=== PATIENT | female | born 1950 | race Caucasian/White ===

== ENCOUNTER 2017-06-18 08:50 | Outpatient (RCR) | payer MEDICARE, OTHER ==
[2017-03-26 08:30] VITALS: BP 117/71
[2017-03-26 08:35] LABS: PLATELET COUNT, AUTOMATED 188 K/uL (150-450)
[2017-03-28 09:45] VITALS: BP 129/86
--- NOTE | 2017-03-28 18:27 | ONCOLOGY FOLLOW UP NOTE ---
EVENT DATE: March 28, 2017 DIAGNOSES 1. Multiple myeloma. 2. Hypercholesterolemia. 3. History of deep vein thrombosis of the lower extremity. 4. Esophagitis and ulcer disease. CHIEF COMPLAINT Patient is here today for followup of her multiple myeloma on maintenance Velcade therapy. ONCOLOGY HISTORY The patient is a 66-year-old female who was found during her evaluation in July 2011 by CBC and chem panel to have mild leukopenia of 2.4 with atypical lymphocytes in the peripheral blood. Her total protein at that time was high as well as liver enzymes. Total protein was 8.2 and albumin was 3.7. The patient had a serum protein electrophoresis which showed 0.31 gm/dL monoclonal protein. She had a bone marrow aspiration biopsy done on July 19, 2011 which showed kappa monoclonal plasma cell dyscrasia. Peripheral blood was circulating plasma cells representing 8% of the nucleated cells. Beta-2 macroglobulin was high at 4. IgG was low at 374, IgA low at 14 and IgM low at 19. A 24-hour urine showed 1399 mg/dL free monoclonal kappa light change (Bence -Martinez protein) for 24 hours. FISH for multiple myeloma from the bone marrow biopsy came back abnormal for +1, -13 and translocation 14 and 16. Scheduled bone survey came back negative for lytic bone lesions, but MRI of the cervical and thoracic spine did reveal abnormal signal throughout the lower cervical and thoracic spine suggestive of underlying myeloproliferative bone marrow disorder. The patient received chemotherapy with VRD regimen with Velcade, Revlimid and dexamethasone for four courses between August 09, 2011 through November 17, 2011. This was followed by autologous stem cell transplant after pre- palliative regimen with Melphalan 100 mg/m2 given on December 10, 2011 through December 11, 2011. She received stem cell infusion on December 13, 2011. The patient started maintenance Velcade therapy on August 08, 2014. HISTORY OF PRESENT ILLNESS Patient is here today for followup of her multiple myeloma on maintenance Velcade therapy. Patient is doing fine currently. Apart from having some tingling and numbness in the fingers for a few days after her Velcade injection , the patient does not have any other complaints. PAST MEDICAL HISTORY DVT of the left leg in 1999. Hypercholesterolemia. Esophagitis with peptic ulcer disease. PAST SURGICAL HISTORY Surgery for broken right ankle in 2002. Inferior vena cava filter placed in 1999. Tubal ligation. SOCIAL HISTORY The patient is . She has a son and daughter. 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 Denies any abuse of tobacco, alcohol or drugs. She has about one drink per year. FAMILY HISTORY Mother had breast cancer at the age of sixty-three. Father had liver cancer at the age of seventy-three. Aunt with breast cancer, does not know exactly the age. Grandmother had ovarian cancer at the age of sixty-three. CURRENT MEDICATIONS 1. Multivitamins once daily. 2. Calcium 200 mg once daily. 3. Aspirin 81 mg daily. 4. Pantoprazole 40 mg daily. 5. Acyclovir 800 mg daily. 6. Vitamin D 4000 international units once daily. 7. Zometa 4 mg intravenous monthly. 8. Allopurinol 100 mg daily. ALLERGIES STREPTOKINASE, which caused hypotension. CLINDAMYCIN, which caused hives. REVIEW OF SYSTEMS CONSTITUTIONAL: No appetite or weight change. No fever, chills or sweating. No recent infection. HEENT: Ears: No tinnitus or hearing problem. Nose: No nasal discharge or epistaxis. Throat: No sore throat or mouth ulcers. Eyes: No diplopia or visual changes. RESPIRATORY: She has a dry cough from blood pressure medication. CARDIOVASCULAR: No chest pain, orthopnea, or paroxysmal nocturnal dyspnea (PND) . No edema. No palpitations. GASTROINTESTINAL: No nausea or vomiting. No diarrhea or constipation. No change in bowel movements. No heartburn or swallowing difficulties. No abdominal pain. No jaundice. No hematemesis, melena or rectal bleeding. GENITOURINARY: No hematuria or dysuria. MUSCULOSKELETAL: She has neck pain. NEUROLOGICAL: Patient has some neuropathy in the fingers for a few days after each shot of Velcade. HEMATOLOGIC/LYMPHATIC: She bruises easily. No enlarged lymph nodes. SKIN: No skin rash or lump. PSYCHIATRIC: No anxiety or depression. PHYSICAL EXAMINATION GENERAL: Looks stable. Well-developed, well-nourished, and in no acute distress. VITAL SIGNS: Blood pressure 129/86, pulse 73 per minute, respirations 16 per minute, temperature 97.4, pulse ox 93% on room air. HEENT: Head: Atraumatic. No sinus tenderness to palpation. Eyes: No icterus or conjunctivitis. Mouth and throat: No oral thrush or mucositis. NECK: Supple. No cervical or supraclavicular lymphadenopathy. LUNGS: Clear to auscultation and percussion bilaterally. HEART: Regular rate and rhythm. No gallops, murmurs, clicks or rubs. ABDOMEN: Soft and lax. No tenderness. No hepatosplenomegaly. No masses. EXTREMITIES: No cyanosis, clubbing or edema. LYMPHATICS: No peripheral lymphadenopathy. NEUROLOGICAL: Conscious, alert and oriented times three. No focal motor or sensory deficits. PSYCHIATRIC: Mood and affect appear normal. SKIN: No skin rash, bruise or purpuric eruption. DIAGNOSTIC DATA CBC showed white count 4.5 hemoglobin 15.5, hematocrit 44.8, platelets 188,000. Chem panel was totally normal. Beta-2 microglobulin is normal at 1.8. [place] free light chain is high at 5.13, but lambda is normal at 1.22 and the kappa to lambda ratio is 4.20. IgG level is 692, IgA is 160 and IgM is 29. Serum protein immunoelectrophoresis shows a monoclonal band of IgG kappa at 0.22 g/dL , which is stable. ASSESSMENT 1. Multiple myeloma with plasma cell leukemia with 60% plasma cells in the bone marrow and 8% plasma cells in the peripheral blood. Skeletal bone survey was negative for lytic bone lesions. MRI of the cervical spine did reveal bone marrow signal throughout the lower cervical and thoracic spine suggestive of underlying bone disease. Patient received VRD chemotherapy with Velcade, Revlimid and dexamethasone between August 09, 2011 through November 04, 2011 followed by autologous stem cell transplant on March 16, 2012, after melphalan conditioning. Bone marrow aspiration biopsy revealed the presence of 4% to 5% kappa monoclonal cells and 0.9 g/dL IgG kappa monoclonal protein after bone marrow transplant. Her M-spike marcelo, so the patient started maintenance Velcade therapy on August 08, 2014, and she is maintained on Velcade every other week. Her current monoclonal protein is 0.22 g/dL which is stable. Patient is totally asymptomatic, except for mild neuropathy in the tips of the fingers for a few days after each Velcade shot. Patient denies any constitutional symptoms. I am planning to continue followup. I will continue Velcade every other week. I will see her again in a month from now with CBC, chem panel, LDH , uric acid and myeloma profile, and I will check CBC, chem panel and uric acid prior to each Velcade shot. 2. Velcade-induced neuropathy, very mild. Patient currently on vitamin B6 and B12. Will continue the same. 3. Esophagitis on pantoprazole. 4. History of deep venous thrombosis of the left lower extremity in 1999, status post IVC filter placement. 5. Hyperuricemia, under control with allopurinol. PLAN 1. Velcade every other week. 2. CBC, chem panel, uric acid prior to each Velcade therapy. 3. Patient is to return in one month with CBC chem panel, LDH, uric acid and myeloma profile. 4. Continue acyclovir 800 mg twice daily as a prophylaxis against shingles. 5. Patient is to contact us for any new concerns or complaints. [facility]
[2017-04-08 09:08] VITALS: BP 115/69
[2017-04-08 09:10] LABS: PLATELET COUNT, AUTOMATED 198 K/uL (150-450)
[2017-04-09 09:11] VITALS: BP 114/80
[2017-04-22 09:22] VITALS: BP 124/76
[2017-04-22 09:37] LABS: PLATELET COUNT, AUTOMATED 189 K/uL (150-450)
[2017-04-23 08:47] VITALS: BP 113/84
[2017-05-06 09:03] VITALS: BP 134/86
[2017-05-06 09:14] LABS: PLATELET COUNT, AUTOMATED 201 K/uL (150-450)
[2017-05-20 09:22] LABS: PLATELET COUNT, AUTOMATED 208 K/uL (150-450)
[2017-05-20 15:05] VITALS: BP 129/94
[2017-05-21 08:59] VITALS: BP 128/77
[2017-05-24 08:55] VITALS: BP 114/75
--- NOTE | 2017-05-24 16:42 | ONCOLOGY FOLLOW UP NOTE ---
EVENT DATE: May 24, 2017 DIAGNOSES 1. Multiple myeloma. 2. Hypercholesterolemia. 3. History of deep vein thrombosis of the lower extremity. 4. Esophagitis and ulcer disease. CHIEF COMPLAINT Patient is here today for followup of her multiple myeloma on maintenance Velcade therapy. ONCOLOGY HISTORY The patient is a 66-year-old female who was found during her evaluation in July 2011 by CBC and chem panel to have mild leukopenia of 2.4 with atypical lymphocytes in the peripheral blood. Her total protein at that time was high as well as liver enzymes. Total protein was 8.2 and albumin was 3.7. The patient had a serum protein electrophoresis which showed 0.31 gm/dL monoclonal protein. She had a bone marrow aspiration biopsy done on July 19, 2011 which showed kappa monoclonal plasma cell dyscrasia. Peripheral blood was circulating plasma cells representing 8% of the nucleated cells. Beta-2 macroglobulin was high at 4. IgG was low at 374, IgA low at 14 and IgM low at 19. A 24-hour urine showed 1399 mg/dL free monoclonal kappa light change (Bence -Martinez protein) for 24 hours. FISH for multiple myeloma from the bone marrow biopsy came back abnormal for +1, -13 and translocation 14 and 16. Scheduled bone survey came back negative for lytic bone lesions, but MRI of the cervical and thoracic spine did reveal abnormal signal throughout the lower cervical and thoracic spine suggestive of underlying myeloproliferative bone marrow disorder. The patient received chemotherapy with VRD regimen with Velcade, Revlimid and dexamethasone for four courses between August 09, 2011 through November 17, 2011. This was followed by autologous stem cell transplant after pre- palliative regimen with Melphalan 100 mg/m2 given on December 10, 2011 through December 11, 2011. She received stem cell infusion on December 13, 2011. The patient started maintenance Velcade therapy on August 08, 2014. HISTORY OF PRESENT ILLNESS Patient is here today for followup of her multiple myeloma on maintenance Velcade therapy with Velcade every other week. She is doing fine currently, except for some upper respiratory tract infection with cough and expectoration and runny nose. She has also occasional headache. Other than that she is doing fine. PAST MEDICAL HISTORY DVT of the left leg in 1999. Hypercholesterolemia. Esophagitis with peptic ulcer disease. PAST SURGICAL HISTORY Surgery for broken right ankle in 2002. Inferior vena cava filter placed in 1999. Tubal ligation. SOCIAL HISTORY The patient is . She has a son and daughter. 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 Denies any abuse of tobacco, alcohol or drugs. She has about one drink per year. FAMILY HISTORY Mother had breast cancer at the age of sixty-three. Father had liver cancer at the age of seventy-three. Aunt with breast cancer, does not know exactly the age. Grandmother had ovarian cancer at the age of sixty-three. CURRENT MEDICATIONS 1. Multivitamins once daily. 2. Calcium 200 mg once daily. 3. Aspirin 81 mg daily. 4. Pantoprazole 40 mg daily. 5. Acyclovir 800 mg daily. 6. Vitamin D 4000 international units once daily. 7. Zometa 4 mg intravenous monthly. 8. Allopurinol 100 mg daily. ALLERGIES STREPTOKINASE, which caused hypotension. CLINDAMYCIN, which caused hives. REVIEW OF SYSTEMS CONSTITUTIONAL: No appetite or weight change. No fever, chills or sweating. No recent infection. HEENT: Ears: No tinnitus or hearing problem. Nose: She has runny nose. Throat: No sore throat or mouth ulcers. Eyes: No diplopia or visual changes. RESPIRATORY: She has a cough with expectoration. CARDIOVASCULAR: No chest pain, orthopnea, or paroxysmal nocturnal dyspnea (PND) . No edema. No palpitations. GASTROINTESTINAL: No nausea or vomiting. No diarrhea or constipation. No change in bowel movements. No heartburn or swallowing difficulties. No abdominal pain. No jaundice. No hematemesis, melena or rectal bleeding. GENITOURINARY: No hematuria or dysuria. MUSCULOSKELETAL: She has neck pain. NEUROLOGICAL: She has occasional headache. HEMATOLOGIC/LYMPHATIC: She bruises easily. No enlarged lymph nodes. SKIN: No skin rash or lump. PSYCHIATRIC: No anxiety or depression. PHYSICAL EXAMINATION GENERAL: Looks stable. Well-developed, well-nourished, and in no acute distress. VITAL SIGNS: Blood pressure 114/75, pulse 86 per minute, respirations 16 per minute, temperature 97.5, pulse ox 90% on room air. HEENT: Head: Atraumatic. No sinus tenderness to palpation. Eyes: No icterus or conjunctivitis. Mouth and throat: No oral thrush or mucositis. NECK: Supple. No cervical or supraclavicular lymphadenopathy. LUNGS: Clear to auscultation and percussion bilaterally. HEART: Regular rate and rhythm. No gallops, murmurs, clicks or rubs. ABDOMEN: Soft and lax. No tenderness. No hepatosplenomegaly. No masses. EXTREMITIES: No cyanosis, clubbing or edema. LYMPHATICS: No peripheral lymphadenopathy. NEUROLOGICAL: Conscious, alert and oriented times three. No focal motor or sensory deficits. PSYCHIATRIC: Mood and affect appear normal. SKIN: No skin rash, bruise or purpuric eruption. DIAGNOSTIC DATA CBC showed white count 5.2, hemoglobin 16.5, hematocrit 46.8, platelets 208, 000. Chem panel was totally normal. Beta-2 microglobulin is normal at 2.1. Serum protein immunoelectrophoresis showed a monoclonal band of IgG kappa of 0.25 g/dL. ASSESSMENT 1. Multiple myeloma with plasma cell leukemia with 60% plasma cells in the bone marrow and 8% plasma cells in the peripheral blood. Skeletal bone survey was negative for lytic bone lesions. MRI of the cervical spine did reveal bone marrow signal throughout the lower cervical and thoracic spine suggestive of underlying bone disease. Patient received VRD chemotherapy with Velcade, Revlimid and dexamethasone between August 09, 2011 through November 04, 2011 followed by autologous stem cell transplant on March 16, 2012, after melphalan conditioning. Bone marrow aspiration biopsy revealed the presence of 4% to 5% kappa monoclonal cells and 0.9 g/dL IgG kappa monoclonal protein after her bone marrow transplant. Her M-spike marcelo, so the patient started maintenance Velcade therapy on August 08, 2014, and she was maintained on that since then. Her current monoclonal protein is 0.25 g of IgG [place], which is up from 0.22 g/ dL. Patient is asymptomatic from her disease. I am planning to continue the same treatment with Velcade every other week, and I will see her in a month. If her monoclonal protein continues to rise, I am planning to switch her maintenance therapy from Velcade to Revlimid orally. I explained that to the patient and she is agreeable with the plan of management. I will see her in a month with CBC, chem panel, LDH, uric acid and myeloma profile. 2. Velcade-induced neuropathy, very mild. Will continue vitamin supplement with B6 and B12. 3. Esophagitis on pantoprazole. 4. History of deep venous thrombosis of the left lower extremity in 1999, status post IVC filter placement. 5. Hyperuricemia, under control with allopurinol 100 mg daily. We will continue the same. PLAN 1. Velcade every other week. 2. CBC, chem panel to be checked prior to each Velcade therapy. 3. Patient is to return in one month with CBC chem panel, LDH, uric acid and myeloma profile. 4. Continue acyclovir 800 mg twice daily as a prophylaxis against shingles. 5. Allopurinol 100 mg daily. 5. Patient is to contact us for any new concern or complaints. [facility]
[2017-06-03 08:42] VITALS: BP 116/78
[2017-06-03 08:58] LABS: PLATELET COUNT, AUTOMATED 212 K/uL (150-450)
[2017-06-04 09:21] VITALS: BP 123/75
[2017-06-17 09:17] VITALS: BP 117/73
[2017-06-17 09:35] LABS: PLATELET COUNT, AUTOMATED 206 K/uL (150-450)
[~2017-06-18] VITALS: Ht 160 cm; Wt 81.5 kg
[~2017-06-18 08:50] MED LIST: ACYC800T99 PO; ALLO-119 PO; ALLO100T70 PO; AMOX-362 PO; ASPI-1471 PO; BORTEZOMIB 3.5 MG INJS SC ONE; CALC600T63 PO; CHOL200022 PO; HYDR-2966 PO; LUTE20CA11 PO; MULT-820 PO; ONDA8TAB94 PO; PANT40TA65 PO; POTA10CA40 PO; PYRI100T57 PO; SIMV5TAB60 PO; ZOLE4VIA IV
[2017-06-18] MEDS ORDERED: BORTEZOMIB 3.5 MG INJS SC ONE (09:00)
[2017-06-18 09:19] VITALS: BP 109/83
== END 2017-06-20 ==
LOC: SPU 08:50
PROVIDERS: ATTEND Internal Medicine Hematology
DX: Z51.11 Encounter for antineoplastic chemotherapy (principal); C90.01 Multiple myeloma in remission; Z85.6 Personal history of leukemia; G62.0 Drug-induced polyneuropathy; K20.9 Esophagitis, unspecified; Z86.718 Personal history of other venous thrombosis and embolism; E79.0 Hyperuricemia without signs of inflammatory arthritis and tophaceous disease; Z79.82 Long term (current) use of aspirin; Z79.899 Other long term (current) drug therapy; M54.2 Cervicalgia; R05 Cough
CPT/HCPCS: 36415; 82232; 83615; 83883; 84550; 85025; 86334; 96401; G0463; J9041; 82040; 82247; 82310; 82374; 82435; 82565; 82947; 84075; 84132; 84155; 84295; 84450; 84460; 84520; 99212

== ENCOUNTER → 2017-07-05 | Outpatient (CLI) | payer MEDICARE, OTHER ==
[~2017-07-05] MED LIST changes: -BORTEZOMIB 3.5 MG INJS SC ONE
[2017-07-05 11:33] LABS: PLATELET COUNT, AUTOMATED 123 K/uL (150-450)
--- NOTE | 2017-07-05 11:57 | RADIOLOGY IMAGING REPORT ---
FACILITY: [facility] PATIENT NAME: Rosa Quiroga : 1950 MR: [id number] V: [id number] EXAM DATE: ORDERING PHYSICIAN: JALYN STERLING TECHNOLOGIST: Location[place] [facility] [place] Patient: Rosa Quiroga : 1950 Visit/Account:[id number] Date of Sevice: 07/05/2017 Technique: CHEST PA AND LAT HISTORY: Bronchitis Comparison studies: Chest radiographs January 11, 2016 FINDINGS: Hazy left left lower and left midlung as well as right lower lung airspace opacities are no nathan. The lung apices are clear. No pleural effusion. The cardiac silhouette is unremarkable. IMPRESSION: 1. Findings concerning for multilobar pneumonia. Report Dictated By: Karan Bruno DO at 07/05/2017 11:51 AM Report E-Signed By: Karan Bruno DO at 07/05/2017 11:53 AM WSN:[email or web address]
== END ==
LOC: LAB 10:51
PROVIDERS: ATTEND Family Medicine
DX: R91.8 Other nonspecific abnormal finding of lung field (principal); J40 Bronchitis, not specified as acute or chronic; R00.0 Tachycardia, unspecified
CPT/HCPCS: 36415; 71046; 82040; 82247; 82310; 82374; 82435; 82565; 82947; 84075; 84132; 84155; 84295; 84450; 84460; 84520; 85025

== ENCOUNTER → 2017-08-06 | Outpatient (CLI) | payer MEDICARE, OTHER ==
[~2017-08-06] MED LIST changes: +POTA20TA94 PO
--- NOTE | 2017-08-07 08:28 | RADIOLOGY IMAGING REPORT ---
FACILITY: [facility] - [place] PATIENT NAME: ENMA BROWN : [id number] MR: [id number] V: [id number] EXAM DATE: ORDERING PHYSICIAN: JALYN STERLING TECHNOLOGIST: Azalea Dior PROCEDURE:BILATERAL DIGITAL SCREENING MAMMOGRAM WITH CAD ASSISTED INTERPRETATION & 3D TOMOSYNTHESIS COMPARISON:Prior mammograms 07/16/16, 07/14/15, 07/09/14, 06/17/13, 06/12/12, 06/11/11. INDICATIONS:SCREENING FINDINGS: Moderately heterogeneous fibroglandular tissue is seen throughout the breasts. The parenchymal pattern has remained stable allowing for difference in mammographic technique & patient positioning. There is no evidence of malignant appearing mass, malignant appearing calcifications or other secondary sign of malignancy in either breast. DIAGNOSTIC CATEGORY 1--NEGATIVE. RECOMMENDATIONS: ROUTINE MAMMOGRAM AND CLINICAL EVALUATION. IMPRESSION: BIRADS 1: Negative No significant abnormality is seen. Dictated by: Kimberley Sauceda M.D. on 08/06/2017 at 14:52 Transcribed by: RASTA on 08/06/2017 at 15:32 Approved by: Kimberley Sauceda M.D. on 08/07/2017 at 8:27 [facility]
== END ==
LOC: MAMO 01:53
PROVIDERS: ATTEND Family Medicine
DX: Z12.31 Encounter for screening mammogram for malignant neoplasm of breast (principal)
CPT/HCPCS: 77063; 77067

== ENCOUNTER 2017-09-10 09:30 | Outpatient (RCR) | payer MEDICARE, OTHER ==
[2017-06-21 09:18] VITALS: BP 120/67
--- NOTE | 2017-06-22 17:41 | ONCOLOGY FOLLOW UP NOTE ---
EVENT DATE: June 21, 2017 DIAGNOSES 1. Multiple myeloma. 2. Hypercholesterolemia. 3. History of deep vein thrombosis of the lower extremity. 4. Esophagitis and ulcer disease. CHIEF COMPLAINT Patient is here today for followup of her multiple myeloma on maintenance Velcade therapy. ONCOLOGY HISTORY The patient is a 66-year-old female who was found during her evaluation in July 2011 by CBC and chem panel to have mild leukopenia of 2.4 with atypical lymphocytes in the peripheral blood. Her total protein at that time was high as well as liver enzymes. Total protein was 8.2 and albumin was 3.7. The patient had a serum protein electrophoresis which showed 0.31 gm/dL monoclonal protein. She had a bone marrow aspiration biopsy done on July 19, 2011 which showed kappa monoclonal plasma cell dyscrasia. Peripheral blood was circulating plasma cells representing 8% of the nucleated cells. Beta-2 macroglobulin was high at 4. IgG was low at 374, IgA low at 14 and IgM low at 19. A 24-hour urine showed 1399 mg/dL free monoclonal kappa light change (Bence -Martinez protein) for 24 hours. FISH for multiple myeloma from the bone marrow biopsy came back abnormal for +1, -13 and translocation 14 and 16. Scheduled bone survey came back negative for lytic bone lesions, but MRI of the cervical and thoracic spine did reveal abnormal signal throughout the lower cervical and thoracic spine suggestive of underlying myeloproliferative bone marrow disorder. The patient received chemotherapy with VRD regimen with Velcade, Revlimid and dexamethasone for four courses between August 09, 2011 through November 17, 2011. This was followed by autologous stem cell transplant after pre- palliative regimen with Melphalan 100 mg/m2 given on December 10, 2011 through December 11, 2011. She received stem cell infusion on December 13, 2011. The patient started maintenance Velcade therapy on August 08, 2014. HISTORY OF PRESENT ILLNESS Patient is here today for followup of her multiple myeloma on maintenance Velcade therapy every other week. She is doing fine currently, except from having body aches for one to two days after the Velcade shot. She has occasional headache, but other than that she is doing really very well. PAST MEDICAL HISTORY DVT of the left leg in 1999. Hypercholesterolemia. Esophagitis with peptic ulcer disease. PAST SURGICAL HISTORY Surgery for broken right ankle in 2002. Inferior vena cava filter placed in 1999. Tubal ligation. SOCIAL HISTORY The patient is . She has a son and daughter. 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 Denies any abuse of tobacco, alcohol or drugs. She has about one drink per year. FAMILY HISTORY Mother had breast cancer at the age of sixty-three. Father had liver cancer at the age of seventy-three. Aunt with breast cancer, does not know exactly the age. Grandmother had ovarian cancer at the age of sixty-three. CURRENT MEDICATIONS 1. Multivitamins once daily. 2. Calcium 200 mg once daily. 3. Aspirin 81 mg daily. 4. Pantoprazole 40 mg daily. 5. Acyclovir 800 mg daily. 6. Vitamin D 4000 international units once daily. 7. Zometa 4 mg intravenous monthly. 8. Allopurinol 100 mg daily. ALLERGIES STREPTOKINASE, which caused hypotension. CLINDAMYCIN, which caused hives. REVIEW OF SYSTEMS CONSTITUTIONAL: No appetite or weight change. No fever, chills or sweating. No recent infection. HEENT: Ears: No tinnitus or hearing problem. Nose: She has runny nose. Throat: No sore throat or mouth ulcers. Eyes: No diplopia or visual changes. RESPIRATORY: She has a cough with expectoration. CARDIOVASCULAR: No chest pain, orthopnea, or paroxysmal nocturnal dyspnea (PND) . No edema. No palpitations. GASTROINTESTINAL: No nausea or vomiting. No diarrhea or constipation. No change in bowel movements. No heartburn or swallowing difficulties. No abdominal pain. No jaundice. No hematemesis, melena or rectal bleeding. GENITOURINARY: No hematuria or dysuria. MUSCULOSKELETAL: Patient has generalized body aches for about one to two days after the Velcade shot. NEUROLOGICAL: She has occasional headache. HEMATOLOGIC/LYMPHATIC: She bruises easily. No enlarged lymph nodes. SKIN: No skin rash or lump. PSYCHIATRIC: No anxiety or depression. PHYSICAL EXAMINATION GENERAL: Looks stable. Well-developed, well-nourished, and in no acute distress. VITAL SIGNS: Blood pressure 120/67, pulse 84 per minute, respirations 16 per minute, temperature 97.4, pulse ox 92% on room air. HEENT: Head: Atraumatic. No sinus tenderness to palpation. Eyes: No icterus or conjunctivitis. Mouth and throat: No oral thrush or mucositis. NECK: Supple. No cervical or supraclavicular lymphadenopathy. LUNGS: Clear to auscultation and percussion bilaterally. HEART: Regular rate and rhythm. No gallops, murmurs, clicks or rubs. ABDOMEN: Soft and lax. No tenderness. No hepatosplenomegaly. No masses. EXTREMITIES: No cyanosis, clubbing or edema. LYMPHATICS: No peripheral lymphadenopathy. NEUROLOGICAL: Conscious, alert and oriented times three. No focal motor or sensory deficits. PSYCHIATRIC: Mood and affect appear normal. SKIN: No skin rash, bruise or purpuric eruption. DIAGNOSTIC DATA CBC showed white count 4.9, hemoglobin 16.3, hematocrit 46.2, platelets 206, 000. Chem panel was totally normal except for AST 36. Other parameters are normal. Beta-2 microglobulin is normal at 1.9. [place] free light chain is high at 6.58, while lambda free light chain is normal at 0.92, with kappa to lambda free light chain ratio high at 7.15. IgG level is low at 671. Serum protein immunoelectrophoresis showed a monoclonal band of 0.22 g of IgG kappa, which is stable. ASSESSMENT 1. Multiple myeloma with plasma cell leukemia with 60% plasma cells in the bone marrow and 8% plasma cells in the peripheral blood. Skeletal bone survey was negative for lytic bone lesions. MRI of the cervical spine did reveal bone marrow signal throughout the lower cervical and thoracic spine suggestive of underlying bone disease. Patient received VRD chemotherapy with Velcade, Revlimid and dexamethasone between August 09, 2011 through November 04, 2011 followed by autologous stem cell transplant on March 16, 2012, after melphalan conditioning. Bone marrow aspiration biopsy revealed the presence of 4% to 5% kappa monoclonal cells and 0.9 g/dL IgG kappa monoclonal protein after her bone marrow transplant. Her M-spike marcelo, so the patient started maintenance Velcade therapy on August 08, 2014, and she is maintained on Velcade that since then. Her current monoclonal protein is 0.22, which is down from 0.25 of IgG [place]. Patient is asymptomatic from her disease, except for generalized body aches after Velcade for one to two days. I am planning to continue Velcade every other week, and I will check CBC, chem panel prior to each dose of Velcade , and I will see her again in a month with CBC, chem panel, LDH, uric acid and myeloma profile. 2. Velcade-induced neuropathy, which is really very good currently. Patient will continue vitamin B6 and B12 supplement. 3. Esophagitis on pantoprazole. 4. History of deep venous thrombosis of the left lower extremity in 1999, status post IVC filter placement. 5. Hyperuricemia, under control with allopurinol 100 mg daily. We will continue the same. PLAN 1. Velcade every other week. 2. CBC, chem panel to be checked prior to each Velcade therapy. 3. Patient is to return in one month with CBC chem panel, LDH, uric acid and myeloma profile. 4. Continue acyclovir 800 mg twice daily as a prophylaxis against shingles. 5. Allopurinol 100 mg daily. 5. Patient is to contact us for any new concern or complaints. [facility]
[2017-07-01 09:04] LABS: PLATELET COUNT, AUTOMATED 182 K/uL (150-450)
[2017-07-01 16:07] VITALS: BP 131/78
[2017-07-02 08:49] VITALS: BP 133/84
[2017-07-15 09:30] VITALS: BP 114/76
[2017-07-15 09:36] LABS: PLATELET COUNT, AUTOMATED 241 K/uL (150-450)
[2017-07-16 08:51] VITALS: BP 115/53
[2017-07-16 11:10] VITALS: BP 101/66
[2017-07-23 08:44] VITALS: BP 116/77
[2017-07-25 08:56] VITALS: BP 123/77
--- NOTE | 2017-07-25 18:49 | ONCOLOGY FOLLOW UP NOTE ---
EVENT DATE: July 25, 2017 DIAGNOSES 1. Multiple myeloma. 2. Hypercholesterolemia. 3. History of deep vein thrombosis of the lower extremity. 4. Esophagitis and ulcer disease. CHIEF COMPLAINT Patient is here today for followup of her multiple myeloma on maintenance Velcade therapy. ONCOLOGY HISTORY The patient is a 66-year-old female who was found during her evaluation in July 2011 by CBC and chem panel to have mild leukopenia of 2.4 with atypical lymphocytes in the peripheral blood. Her total protein at that time was high as well as liver enzymes. Total protein was 8.2 and albumin was 3.7. The patient had a serum protein electrophoresis which showed 0.31 gm/dL monoclonal protein. She had a bone marrow aspiration biopsy done on July 19, 2011 which showed kappa monoclonal plasma cell dyscrasia. Peripheral blood was circulating plasma cells representing 8% of the nucleated cells. Beta-2 macroglobulin was high at 4. IgG was low at 374, IgA low at 14 and IgM low at 19. A 24-hour urine showed 1399 mg/dL free monoclonal kappa light change (Bence -Martinez protein) for 24 hours. FISH for multiple myeloma from the bone marrow biopsy came back abnormal for +1, -13 and translocation 14 and 16. Scheduled bone survey came back negative for lytic bone lesions, but MRI of the cervical and thoracic spine did reveal abnormal signal throughout the lower cervical and thoracic spine suggestive of underlying myeloproliferative bone marrow disorder. The patient received chemotherapy with VRD regimen with Velcade, Revlimid and dexamethasone for four courses between August 09, 2011 through November 17, 2011. This was followed by autologous stem cell transplant after pre- palliative regimen with Melphalan 100 mg/m2 given on December 10, 2011 through December 11, 2011. She received stem cell infusion on December 13, 2011. The patient started maintenance Velcade therapy on August 08, 2014. HISTORY OF PRESENT ILLNESS Patient is here today for followup of her multiple myeloma on maintenance Velcade therapy given every other week. She is doing fine currently, except she had pneumonia two weeks ago, and she continues to have a residual cough with expectoration, but she is recovering from her infection. She is complaining also of headache and being tired and fatigued from her pneumonia. PAST MEDICAL HISTORY DVT of the left leg in 1999. Hypercholesterolemia. Esophagitis with peptic ulcer disease. PAST SURGICAL HISTORY Surgery for broken right ankle in 2002. Inferior vena cava filter placed in 1999. Tubal ligation. SOCIAL HISTORY The patient is . She has a son and daughter. 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 Denies any abuse of tobacco, alcohol or drugs. She has about one drink per year. FAMILY HISTORY Mother had breast cancer at the age of sixty-three. Father had liver cancer at the age of seventy-three. Aunt with breast cancer, does not know exactly the age. Grandmother had ovarian cancer at the age of sixty-three. CURRENT MEDICATIONS 1. Multivitamins once daily. 2. Calcium 200 mg once daily. 3. Aspirin 81 mg daily. 4. Pantoprazole 40 mg daily. 5. Acyclovir 800 mg daily. 6. Vitamin D 4000 international units once daily. 7. Zometa 4 mg intravenous monthly. 8. Allopurinol 100 mg daily. ALLERGIES 1. STREPTOKINASE, which caused hypotension. 2. CLINDAMYCIN, which caused hives. REVIEW OF SYSTEMS CONSTITUTIONAL: No appetite or weight change. No fever, chills or sweating. No recent infection. HEENT: Ears: No tinnitus or hearing problem. Nose: She has runny nose. Throat: No sore throat or mouth ulcers. Eyes: No diplopia or visual changes. RESPIRATORY: She has cough with expectoration. CARDIOVASCULAR: No chest pain, orthopnea, or paroxysmal nocturnal dyspnea (PND) . No edema. No palpitations. GASTROINTESTINAL: No nausea or vomiting. No diarrhea or constipation. No change in bowel movements. No heartburn or swallowing difficulties. No abdominal pain. No jaundice. No hematemesis, melena or rectal bleeding. GENITOURINARY: No hematuria or dysuria. MUSCULOSKELETAL: Patient has generalized body aches for about one to two days after the Velcade shot. NEUROLOGICAL: She has headache. HEMATOLOGIC/LYMPHATIC: No enlarged lymph nodes. She is weak, tired and fatigued. SKIN: No skin rash or lump. PSYCHIATRIC: No anxiety or depression. PHYSICAL EXAMINATION GENERAL: Looks stable. Well-developed, well-nourished, and in no acute distress. VITAL SIGNS: Blood pressure 123/77, pulse 72 per minute, respirations 16 per minute, temperature 97.1, pulse ox 92% on room air. HEENT: Head: Atraumatic. No sinus tenderness to palpation. Eyes: No icterus or conjunctivitis. Mouth and throat: No oral thrush or mucositis. NECK: Supple. No cervical or supraclavicular lymphadenopathy. LUNGS: Clear to auscultation and percussion bilaterally. HEART: Regular rate and rhythm. No gallops, murmurs, clicks or rubs. ABDOMEN: Soft and lax. No tenderness. No hepatosplenomegaly. No masses. EXTREMITIES: No cyanosis, clubbing or edema. LYMPHATICS: No peripheral lymphadenopathy. NEUROLOGICAL: Conscious, alert and oriented times three. No focal motor or sensory deficits. PSYCHIATRIC: Mood and affect appear normal. SKIN: No skin rash, bruise or purpuric eruption. DIAGNOSTIC DATA CBC showed white count 4.8, hemoglobin 15.8, hematocrit 43.7, platelets 241, 000. Chem panel totally normal. Beta-2 microglobulin is normal at 2.1. Serum protein immunoelectrophoresis showed 0.21 g/dL monoclonal protein of IgG kappa which is stable. ASSESSMENT 1. Multiple myeloma with plasma cell leukemia with 60% plasma cells in the bone marrow and 8% plasma cells in the peripheral blood. Skeletal bone survey was negative for lytic bone lesions. MRI of the cervical spine did reveal bone marrow signal throughout the lower cervical and thoracic spine suggestive of underlying bone disease. Patient received VRD chemotherapy with Velcade, Revlimid and dexamethasone between August 09, 2011 through November 04, 2011 followed by autologous stem cell transplant on March 16, 2012. She received melphalan conditioning at that time. Bone marrow aspiration biopsy revealed the presence of 4% to 5% kappa monoclonal cells and 0.9 g/dL IgG kappa monoclonal protein after her bone marrow transplant. Her M-spike marcelo, so the patient started maintenance Velcade therapy August 08, 2014, and she is on maintenance Velcade since then with stabilization of her monoclonal protein. Her current monoclonal protein is 0.21 g/dL of IgG kappa, which is stable. Patient is asymptomatic of her disease. She caught pneumonia two weeks ago, recovered from that, and patient is going to contact her primary care for pneumovax because she is due for repeat injection now. I am planning to continue Velcade every other week with CBC, chem panel to be checked before that. I will see her in a month with CBC, chem panel, LDH, uric acid and myeloma profile. 2. Velcade-induced neuropathy. Very good currently with B12 and B6 supplements. 3. Esophagitis on pantoprazole. 4. History of deep venous thrombosis, left lower extremity in 1999, status post IVC filter placement. 5. Hyperuricemia, under control with allopurinol 100 mg daily. We will continue the same. PLAN 1. Velcade every other week. 2. CBC, chem panel prior to each Velcade therapy. 3. Patient to return in one month with CBC chem panel, LDH, uric acid and myeloma profile. 4. Acyclovir 800 mg twice daily as a prophylaxis against shingles. 5. Allopurinol 100 mg daily. 6. Patient is to contact us for any new concern or complaints. MTDD
[2017-07-29 09:19] LABS: PLATELET COUNT, AUTOMATED 193 K/uL (150-450)
[2017-07-29 12:12] VITALS: BP 117/73
[2017-07-30 08:47] VITALS: BP 112/76
[2017-08-12 09:57] LABS: PLATELET COUNT, AUTOMATED 193 K/uL (150-450)
[2017-08-13 09:13] VITALS: BP 120/82
[2017-08-27 08:40] VITALS: BP 122/77
[2017-08-29 08:52] VITALS: BP 123/80
--- NOTE | 2017-08-29 18:32 | ONCOLOGY FOLLOW UP NOTE ---
EVENT DATE: August 29, 2017 DIAGNOSES 1. Multiple myeloma. 2. Hypercholesterolemia. 3. History of deep vein thrombosis of the lower extremity. 4. Esophagitis and ulcer disease. CHIEF COMPLAINT Patient is here today for followup of her multiple myeloma on maintenance Velcade therapy. ONCOLOGY HISTORY The patient is a 66-year-old female who was found during her evaluation in July 2011 by CBC and chem panel to have mild leukopenia of 2.4 with atypical lymphocytes in the peripheral blood. Her total protein at that time was high as well as liver enzymes. Total protein was 8.2 and albumin was 3.7. The patient had a serum protein electrophoresis which showed 0.31 gm/dL monoclonal protein. She had a bone marrow aspiration biopsy done on July 19, 2011 which showed kappa monoclonal plasma cell dyscrasia. Peripheral blood was circulating plasma cells representing 8% of the nucleated cells. Beta-2 macroglobulin was high at 4. IgG was low at 374, IgA low at 14 and IgM low at 19. A 24-hour urine showed 1399 mg/dL free monoclonal kappa light change (Bence -Martinez protein) for 24 hours. FISH for multiple myeloma from the bone marrow biopsy came back abnormal for +1, -13 and translocation 14 and 16. Scheduled bone survey came back negative for lytic bone lesions, but MRI of the cervical and thoracic spine did reveal abnormal signal throughout the lower cervical and thoracic spine suggestive of underlying myeloproliferative bone marrow disorder. The patient received chemotherapy with VRD regimen with Velcade, Revlimid and dexamethasone for four courses between August 09, 2011 through November 17, 2011. This was followed by autologous stem cell transplant after pre- palliative regimen with Melphalan 100 mg/m2 given on December 10, 2011 through December 11, 2011. She received stem cell infusion on December 13, 2011. The patient started maintenance Velcade therapy on August 08, 2014. HISTORY OF PRESENT ILLNESS Patient is here today for followup of her multiple myeloma on maintenance Velcade therapy. She is doing fine currently. She is totally asymptomatic, except for occasional headaches. PAST MEDICAL HISTORY DVT of the left leg in 1999. Hypercholesterolemia. Esophagitis with peptic ulcer disease. PAST SURGICAL HISTORY Surgery for broken right ankle in 2002. Inferior vena cava filter placed in 1999. Tubal ligation. SOCIAL HISTORY The patient is . She has a son and daughter. 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 Denies any abuse of tobacco, alcohol or drugs. She has about one drink per year. FAMILY HISTORY Mother had breast cancer at the age of sixty-three. Father had liver cancer at the age of seventy-three. Aunt with breast cancer, does not know exactly the age. Grandmother had ovarian cancer at the age of sixty-three. CURRENT MEDICATIONS 1. Multivitamins once daily. 2. Calcium 200 mg once daily. 3. Aspirin 81 mg daily. 4. Pantoprazole 40 mg daily. 5. Acyclovir 800 mg daily. 6. Vitamin D 4000 international units once daily. 7. Zometa 4 mg intravenous monthly. 8. Allopurinol 100 mg daily. ALLERGIES 1. STREPTOKINASE, which caused hypotension. 2. CLINDAMYCIN, which caused hives. REVIEW OF SYSTEMS CONSTITUTIONAL: No appetite or weight change. No fever, chills or sweating. No recent infection. HEENT: Ears: No tinnitus or hearing problem. Nose: She has runny nose. Throat: No sore throat or mouth ulcers. Eyes: No diplopia or visual changes. RESPIRATORY: She has cough with expectoration. CARDIOVASCULAR: No chest pain, orthopnea, or paroxysmal nocturnal dyspnea (PND) . No edema. No palpitations. GASTROINTESTINAL: No nausea or vomiting. No diarrhea or constipation. No change in bowel movements. No heartburn or swallowing difficulties. No abdominal pain. No jaundice. No hematemesis, melena or rectal bleeding. GENITOURINARY: No hematuria or dysuria. MUSCULOSKELETAL: Patient has generalized body aches for about one to two days after the Velcade shot. NEUROLOGICAL: She has occasional headaches. HEMATOLOGIC/LYMPHATIC: No enlarged lymph nodes. She is weak, tired and fatigued. SKIN: No skin rash or lump. PSYCHIATRIC: No anxiety or depression. PHYSICAL EXAMINATION GENERAL: Looks stable. Well-developed, well-nourished, and in no acute distress. VITAL SIGNS: Blood pressure 123/80, pulse 91 per minute, respirations 16 per minute, temperature 97.9, pulse ox 90% on room air. HEENT: Head: Atraumatic. No sinus tenderness to palpation. Eyes: No icterus or conjunctivitis. Mouth and throat: No oral thrush or mucositis. NECK: Supple. No cervical or supraclavicular lymphadenopathy. LUNGS: Clear to auscultation and percussion bilaterally. HEART: Regular rate and rhythm. No gallops, murmurs, clicks or rubs. ABDOMEN: Soft and lax. No tenderness. No hepatosplenomegaly. No masses. EXTREMITIES: No cyanosis, clubbing or edema. LYMPHATICS: No peripheral lymphadenopathy. NEUROLOGICAL: Conscious, alert and oriented times three. No focal motor or sensory deficits. PSYCHIATRIC: Mood and affect appear normal. SKIN: No skin rash, bruise or purpuric eruption. DIAGNOSTIC DATA CBC showed white count 4.8, hemoglobin 16.3, hematocrit 46.3, platelets 218, 000. Chem panel totally normal, except potassium 3.2, AST 41. Other parameters are normal. Myeloma profile showed kappa free light chain 5.13, which is down from 5.25. Her monoclonal protein of IgG kappa is 0.24 g/dL which is up from 0.21 g/dL last visit. ASSESSMENT 1. Multiple myeloma with plasma cell leukemia with 60% plasma cells in the bone marrow and 8% plasma cells in the peripheral blood. Skeletal bone survey was negative for lytic bone lesions. MRI of the cervical spine did reveal bone marrow signal throughout the lower cervical and thoracic spine suggestive of underlying bone disease. Patient received VRD chemotherapy with Velcade, Revlimid and dexamethasone between August 09, 2011 through November 04, 2011 followed by autologous stem cell transplant March 16, 2012. She received melphalan conditioning at that time. Bone marrow aspiration biopsy revealed the presence of 4% to 5% kappa monoclonal cells and 0.9 g/dL IgG kappa monoclonal protein after her bone marrow transplant. Her M-spike marcelo, so the patient started maintenance Velcade therapy August 08, 2014, and she is maintained on Velcade since then with stabilization of her monoclonal protein. Her current level of IgG kappa is 0.24 g/dL which is up from 0.21 g/dL. Patient is totally asymptomatic except for occasional headaches. I am planning to continue followup. I am planning to continue Velcade every other week. I will check her CBC, chem panel prior to each Velcade therapy, and I will see her in a month with CBC, chem panel, LDL, uric acid and myeloma profile. 2. Velcade-induced neuropathy, very mild. Patient currently on vitamin supplements with B12 and B6 with improvement. 3. Esophagitis on pantoprazole. 4. History of deep venous thrombosis, left lower extremity in 1999, status post IVC filter placement. 5. Hyperuricemia, under control with allopurinol 100 mg daily. I will continue same dose. PLAN 1. Velcade every other week. 2. CBC, chem panel to be checked prior to each Velcade therapy. 3. Patient to return in one month with CBC chem panel, LDH, uric acid and myeloma profile. 4. Acyclovir 800 mg twice daily as a prophylaxis against shingles. 5. Allopurinol 100 mg daily. 6. Patient is to contact us for any new concern or complaints. MTDD
[2017-09-09 09:06] VITALS: BP 115/76
[2017-09-09 09:18] LABS: PLATELET COUNT, AUTOMATED 203 K/uL (150-450)
[~2017-09-10] VITALS: Ht 160 cm; Wt 79.5 kg
[~2017-09-10 09:30] MED LIST changes: +BORTEZOMIB 3.5 MG INJS SC ONE; +DEXTROSE 5%(*) 100 ML BAG 100 ML IVPB PRN; +KCL/NS* 20 MEQ/1000 ML PREMIX 1,000 ML IV ONE; +LIDOCAINE/SOD BICARB 8.4% SYR ID PRN; +NS(*) 0.9% 100 ML BAG 100 ML IVPB PRN
[2017-09-10] MEDS ORDERED: BORTEZOMIB 3.5 MG INJS SC ONE (10:30)
[2017-09-10 12:45] VITALS: BP 115/76
== END 2017-09-19 ==
LOC: SPU 09:30
PROVIDERS: ATTEND Internal Medicine Hematology
DX: C90.00 Multiple myeloma not having achieved remission (principal); G62.0 Drug-induced polyneuropathy; T45.1X5A Adverse effect of antineoplastic and immunosuppressive drugs, initial encounter; K20.9 Esophagitis, unspecified; Z86.718 Personal history of other venous thrombosis and embolism; E79.0 Hyperuricemia without signs of inflammatory arthritis and tophaceous disease; E78.00 Pure hypercholesterolemia, unspecified; R05 Cough; Z79.82 Long term (current) use of aspirin; Z79.899 Other long term (current) drug therapy; R53.1 Weakness; R53.83 Other fatigue
CPT/HCPCS: 36415; 82232; 83615; 83883; 84550; 85025; 85027; 86334; 96365; 96366; 96401; G0463; J3480; J7050; J9041; 82040; 82247; 82310; 82374; 82435; 82565; 82947; 84075; 84132; 84155; 84295; 84450; 84460; 84520; 99212

== ENCOUNTER 2017-12-17 08:39 | Outpatient (RCR) | payer MEDICARE, OTHER ==
[2017-09-23 09:18] VITALS: BP 128/79
[2017-09-23 09:25] LABS: PLATELET COUNT, AUTOMATED 199 K/uL (150-450)
[2017-09-24 08:14] VITALS: BP 105/76
[2017-10-07 08:27] LABS: PLATELET COUNT, AUTOMATED 197 K/uL (150-450)
[2017-10-07 15:05] VITALS: BP 124/79
[2017-10-21 09:31] LABS: PLATELET COUNT, AUTOMATED 211 K/uL (150-450)
[2017-10-22 14:35] VITALS: BP 104/79
[2017-10-25 08:03] VITALS: BP 110/73
--- NOTE | 2017-10-25 16:12 | [facility] ONCOLOGY NOTE ---
EVENT DATE: October 25, 2017 DIAGNOSES 1. Multiple myeloma. 2. Hypercholesterolemia. 3. History of deep vein thrombosis of the lower extremity. 4. Esophagitis and ulcer disease. CHIEF COMPLAINT Patient is here today for followup of her multiple myeloma on maintenance Velcade therapy. ONCOLOGY HISTORY The patient is a 67-year-old female who was found during her evaluation in July 2011 by CBC and chem panel to have mild leukopenia of 2.4 with atypical lymphocytes in the peripheral blood. Her total protein at that time was high as well as liver enzymes. Total protein was 8.2, and albumin was 3.7. The patient had a serum protein electrophoresis which showed 0.31 g/dL monoclonal protein. She had a bone marrow aspiration biopsy done on July 19, 2011, which showed kappa monoclonal plasma cell dyscrasia. Peripheral blood was circulating plasma cells representing 8% of the nucleated cells. Beta-2 macroglobulin was high at 4. IgG was low at 374, IgA low at 14, and IgM low at 19. A 24-hour urine showed 1399 mg/dL free monoclonal kappa light change (Bence -Martinez protein) for 24 hours. FISH for multiple myeloma from the bone marrow biopsy came back abnormal for +1, -13, and translocation 14 and 16. Scheduled bone survey came back negative for lytic bone lesions, but MRI of the cervical and thoracic spine did reveal abnormal signal throughout the lower cervical and thoracic spine suggestive of underlying myeloproliferative bone marrow disorder. The patient received chemotherapy with VRd regimen with Velcade, Revlimid, and dexamethasone for four courses between August 09, 2011, through November 17, 2011. This was followed by autologous stem cell transplant after pre -palliative regimen with Melphalan 100 mg/m2 given on December 10, 2011, through December 11, 2011. She received stem cell infusion on December 13, 2011. The patient started maintenance Velcade therapy on August 08, 2014. HISTORY OF PRESENT ILLNESS Patient is here today for followup of her multiple myeloma on maintenance Velcade therapy. She is doing very well currently. Apart from having some mild occasional pain in her legs and occasional headache, patient does not have any other problem. PAST MEDICAL HISTORY 1. DVT of the left leg in 1999. 2. Hypercholesterolemia. 3. Esophagitis with peptic ulcer disease. PAST SURGICAL HISTORY 1. Surgery for broken right ankle in 2002. 2. Inferior vena cava filter placed in 1999. 3. Tubal ligation. SOCIAL HISTORY The patient is . She has a son and daughter. 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 Denies any abuse of tobacco, alcohol , or drugs. She has about one drink per year. FAMILY HISTORY Mother had breast cancer at the age of 63. Father had liver cancer at the age of 73. Aunt with breast cancer, does not know exactly the age. Grandmother had ovarian cancer at the age of 63. CURRENT MEDICATIONS 1. Multivitamins once daily. 2. Calcium 200 mg once daily. 3. Aspirin 81 mg daily. 4. Pantoprazole 40 mg daily. 5. Acyclovir 800 mg daily. 6. Vitamin D 4000 international units once daily. 7. Zometa 4 mg intravenous monthly. 8. Allopurinol 100 mg daily. ALLERGIES 1. STREPTOKINASE, which caused hypotension. 2. CLINDAMYCIN, which caused hives. REVIEW OF SYSTEMS CONSTITUTIONAL: No appetite or weight change. No fever, chills, or sweating. No recent infection. HEENT: Ears: No tinnitus or hearing problem. Nose: She has runny nose. Throat: No sore throat or mouth ulcers. Eyes: No diplopia or visual changes. RESPIRATORY: She has cough with expectoration. CARDIOVASCULAR: No chest pain, orthopnea, or paroxysmal nocturnal dyspnea (PND) . No edema. No palpitations. GASTROINTESTINAL: No nausea or vomiting. No diarrhea or constipation. No change in bowel movements. No heartburn or swallowing difficulties. No abdominal pain. No jaundice. No hematemesis, melena, or rectal bleeding. GENITOURINARY: No hematuria or dysuria. MUSCULOSKELETAL: She has pain in the legs. NEUROLOGICAL: She has occasional headache. HEMATOLOGIC/LYMPHATIC: No enlarged lymph nodes. She is weak, tired, and fatigued. SKIN: No skin rash or lump. PSYCHIATRIC: No anxiety or depression. PHYSICAL EXAMINATION GENERAL: Looks stable. Well-developed, well-nourished, and in no acute distress. VITAL SIGNS: Blood pressure 110/73, pulse 70 per minute, respirations 16 per minute, temperature 97.1, pulse ox 91% on room air. HEENT: Head: Atraumatic. No sinus tenderness to palpation. Eyes: No icterus or conjunctivitis. Mouth and throat: No oral thrush or mucositis. NECK: Supple. No cervical or supraclavicular lymphadenopathy. LUNGS: Clear to auscultation and percussion bilaterally. HEART: Regular rate and rhythm. No gallops, murmurs, clicks or rubs. ABDOMEN: Soft and lax. No tenderness. No hepatosplenomegaly. No masses. EXTREMITIES: No cyanosis, clubbing or edema. LYMPHATICS: No peripheral lymphadenopathy. NEUROLOGICAL: Conscious, alert and oriented times three. No focal motor or sensory deficits. PSYCHIATRIC: Mood and affect appear normal. SKIN: No skin rash, bruise, or purpuric eruption. DIAGNOSTIC DATA CBC showed white count 5.9, hemoglobin 15.5, hematocrit 43.6, platelets 211, 000. Chem panel totally normal except BUN 20, AST 45. Stella free light chain is high at 6.13. Lambda free light chain is high at 0.74. Stella to lambda ratio is high at 8.28. IgG level is 654. IgA level is 145. IgM level 28 which is low. Serum protein immunoelectrophoresis shows monoclonal band of IgG kappa at 0.24 g/dL which is mildly elevated. ASSESSMENT 1. Multiple myeloma with plasma cell leukemia with 60% plasma cells in the bone marrow and 8% plasma cells in the peripheral blood. Skeletal bone survey was negative for lytic bone lesions. MRI of the cervical spine did reveal bone marrow signal throughout the lower cervical and thoracic spine suggestive of underlying bone disease. Patient received VRd chemotherapy with Velcade, Revlimid, and dexamethasone between August 09, 2011, through November 04, 2011, followed by autologous stem cell transplant March 16, 2012. She received melphalan conditioning at that time. Bone marrow aspiration biopsy after the procedure revealed the presence of 4% to 5% kappa monoclonal cells and 0.9 g/dL IgG kappa monoclonal protein. Her M-spike marcelo, so the patient started maintenance Velcade therapy August 08, 2014, and she has maintained on Velcade since then with stabilization of her monoclonal protein. Her current level of IgG kappa is 0.24 g/dL which is stable. Patient is totally asymptomatic except for pain in the legs and occasional headache. She is tolerating treatment very well. I am planning to continue followup. I will see her again in a month with CBC, chem panel, LDH, folic acid, myeloma profile, and I will continue to monitor CBC and chem panel prior to each Velcade therapy given every two weeks. 2. Esophagitis, on pantoprazole. 3. History of deep venous thrombosis, left lower extremity in 1999, status post inferior vena cava filter placement. 4. Hyperuricemia, under control with allopurinol 100 mg daily. Will continue the same. PLAN 1. Velcade every other week. 2. CBC and chem panel to be checked prior to each Velcade therapy. 3. Patient to return in one month with CBC, chem panel, LDH, uric acid, and myeloma profile. 4. Acyclovir 800 mg twice daily as a prophylaxis against shingles. 5. Allopurinol 100 mg daily. 6. Patient is to contact us for any new concerns or complaints. [id number]
[2017-11-04 09:28] LABS: PLATELET COUNT, AUTOMATED 186 K/uL (150-450)
[2017-11-04 09:33] VITALS: BP 109/70
[2017-11-05 08:49] VITALS: BP 115/90
[2017-11-18 08:24] VITALS: BP 132/82
[2017-11-18 08:49] LABS: PLATELET COUNT, AUTOMATED 197 K/uL (150-450)
[2017-11-19 08:47] VITALS: BP 110/78
[2017-11-22 08:24] VITALS: BP 108/68
--- NOTE | 2017-11-22 10:01 | ONCOLOGY FOLLOW UP NOTE ---
EVENT DATE: November 22, 2017 DIAGNOSES 1. Multiple myeloma. 2. Hypercholesterolemia. 3. History of deep vein thrombosis of the lower extremity. 4. Esophagitis and ulcer disease. CHIEF COMPLAINT Patient is here today for followup of her multiple myeloma on maintenance Velcade therapy. ONCOLOGY HISTORY The patient is a 67-year-old female who was found during her evaluation in July 2011 by CBC and chem panel to have mild leukopenia of 2.4 with atypical lymphocytes in the peripheral blood. Her total protein at that time was high as well as liver enzymes. Total protein was 8.2, and albumin was 3.7. The patient had a serum protein electrophoresis which showed 0.31 g/dL monoclonal protein. She had a bone marrow aspiration biopsy done on July 19, 2011, which showed kappa monoclonal plasma cell dyscrasia. Peripheral blood was circulating plasma cells representing 8% of the nucleated cells. Beta-2 macroglobulin was high at 4. IgG was low at 374, IgA low at 14, and IgM low at 19. A 24-hour urine showed 1399 mg/dL free monoclonal kappa light change (Bence-Martienz protein) for 24 hours. FISH for multiple myeloma from the bone marrow biopsy came back abnormal for +1, -13, and translocation 14 and 16. Scheduled bone survey came back negative for lytic bone lesions, but MRI of the cervical and thoracic spine did reveal abnormal signal throughout the lower cervical and thoracic spine suggestive of underlying myeloproliferative bone marrow disorder. The patient received chemotherapy with VRd regimen with Velcade, Revlimid, and dexamethasone for four courses between August 09, 2011, through November 17, 2011. This was followed by autologous stem cell transplant after pre-palliative regimen with Melphalan 100 mg/m2 given on December 10, 2011, through December 11, 2011. She received stem cell infusion on December 13, 2011. The patient started maintenance Velcade therapy on August 08, 2014. HISTORY OF PRESENT ILLNESS Patient is here today for followup of her multiple myeloma on maintenance Velcade therapy. She is complaining of upper respiratory infection recently. she has sore throat, cough with expectoration, shortness of breath and had one episode of diarrhea for two days, which is over currently. She is also complaining of musculoskeletal pain, occasional headache, weakness and fatigue this week. PAST MEDICAL HISTORY 1. DVT of the left leg in 1999. 2. Hypercholesterolemia. 3. Esophagitis with peptic ulcer disease. PAST SURGICAL HISTORY 1. Surgery for broken right ankle in 2002. 2. Inferior vena cava filter placed in 1999. 3. Tubal ligation. SOCIAL HISTORY The patient is . She has a son and daughter. 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 Denies any abuse of tobacco, alcohol, or drugs. She has about one drink per year. FAMILY HISTORY Mother had breast cancer at the age of 63. Father had liver cancer at the age of 73. Aunt with breast cancer, does not know exactly the age. Grandmother had ovarian cancer at the age of 63. CURRENT MEDICATIONS 1. Multivitamins once daily. 2. Calcium 200 mg once daily. 3. Aspirin 81 mg daily. 4. Pantoprazole 40 mg daily. 5. Acyclovir 800 mg daily. 6. Vitamin D 4000 international units once daily. 7. Zometa 4 mg intravenous monthly. 8. Allopurinol 100 mg daily. ALLERGIES 1. STREPTOKINASE, which caused hypotension. 2. CLINDAMYCIN, which caused hives. REVIEW OF SYSTEMS CONSTITUTIONAL: No appetite or weight change. No fever, chills, or sweating. No recent infection. HEENT: Ears: No tinnitus or hearing problem. Nose: She has runny nose. Throat: She had sore throat. Eyes: No diplopia or visual changes. RESPIRATORY: She has cough with expectoration and shortness of breath. CARDIOVASCULAR: No chest pain, orthopnea, or paroxysmal nocturnal dyspnea (PND). No edema. No palpitations. GASTROINTESTINAL: She had one episode of diarrhea for two days, which has resolved. GENITOURINARY: No hematuria or dysuria. MUSCULOSKELETAL: She has muscular pain. NEUROLOGICAL: She has occasional headache. HEMATOLOGIC/LYMPHATIC: She is weak, tired, and fatigued. SKIN: No skin rash or lump. PSYCHIATRIC: No anxiety or depression. PHYSICAL EXAMINATION GENERAL: Looks stable. Well-developed, well-nourished, and in no acute distress. VITAL SIGNS: Blood pressure 108/68 pulse 84 per minute, respirations 16 per minute, temperature 97.4, pulse ox 94% on room air. HEENT: Head: Atraumatic. No sinus tenderness to palpation. Eyes: No icterus or conjunctivitis. Mouth and throat: No oral thrush or mucositis. NECK: Supple. No cervical or supraclavicular lymphadenopathy. LUNGS: Clear to auscultation and percussion bilaterally. HEART: Regular rate and rhythm. No gallops, murmurs, clicks or rubs. ABDOMEN: Soft and lax. No tenderness. No hepatosplenomegaly. No masses. EXTREMITIES: No cyanosis, clubbing or edema. LYMPHATICS: No peripheral lymphadenopathy. NEUROLOGICAL: Conscious, alert and oriented times three. No focal motor or sensory deficits. PSYCHIATRIC: Mood and affect appear normal. SKIN: No skin rash, bruise, or purpuric eruption. DIAGNOSTIC DATA CBC showed white count 4.8, hemoglobin 15.8, hematocrit 44.1, platelets 197,000. Chem panel totally normal except AST of 38. IgG is low at 693 and IgM is low at 52 while IgA is normal at 172. Serum protein electrophoresis shows monoclonal band of IgG kappa of 0.24 g/dL, which is similar to the previous level. Free kappa light chain is high at 6.18 while free lambda light chain is normal at 0.81 while kappa to lambda free light chain ratio if high at 7.63. Beta-2 microglobulin is normal at 2.1. ASSESSMENT 1. Multiple myeloma with plasma cell leukemia with 60% plasma cells in the bone marrow and 8% plasma cells in the peripheral blood. Skeletal bone survey was negative for lytic bone lesions. MRI of the cervical spine did reveal bone marrow signal throughout the lower cervical and thoracic spine suggestive of underlying bone disease. Patient received VRd chemotherapy with Velcade, Revlimid, and dexamethasone between August 09, 2011, through November 04, 2011, followed by autologous stem cell transplant March 16, 2012. She received melphalan conditioning at that time. Bone marrow aspiration biopsy after the procedure revealed the presence of 4% to 5% kappa monoclonal cells and 0.9 g/dL IgG kappa monoclonal protein. Her M-spike marcelo so the patient started maintenance Velcade therapy August 08, 2014. She has maintained on Velcade since then with stabilization of her monoclonal protein. Her current level of IgG kappa is 0.24 g/dL, which is the same like the last visit. Patient had upper respiratory infection and she will take antibiotic, amoxicillin, prescribed by her primary care provider. I am planning to continue followup. I will see her again in a month with CBC, chem panel, LDH, uric acid and myeloma profile and I will repeat CBC and chem panel prior to each dose of Velcade every two weeks. 2. Esophagitis, on pantoprazole. 3. History of deep venous thrombosis, left lower extremity in 1999, status post inferior vena cava filter placement. 4. Hyperuricemia, under control with allopurinol 100 mg daily. Will continue the same. PLAN 1. Velcade every other week. 2. CBC and chem panel to be checked prior to each Velcade dose. 3. Patient to return in one month with CBC, chem panel, LDH, uric acid and myeloma profile. 4. Acyclovir 800 mg twice daily as a prophylaxis against shingles. 5. Allopurinol 100 mg daily. 6. Patient is to contact us for any new concerns or complaints. MTDD
[2017-12-03 08:46] VITALS: BP 121/76
[2017-12-03 08:59] LABS: PLATELET COUNT, AUTOMATED 239 K/uL (150-450)
[2017-12-16 09:14] VITALS: BP 112/72
[2017-12-16 09:31] LABS: PLATELET COUNT, AUTOMATED 190 K/uL (150-450)
[~2017-12-17] VITALS: Ht 160 cm; Wt 80.7 kg
[~2017-12-17 08:39] MED LIST changes: +BORTEZOMIB 3.5 MG INJS SC ONE
[2017-12-17] MEDS ORDERED: BORTEZOMIB 3.5 MG INJS SC ONE (08:45)
[2017-12-17 08:56] VITALS: BP 123/78
[2017-12-17 09:06] VITALS: BP 139/82
[2017-12-20 08:53] VITALS: BP 122/82
== END 2017-12-19 ==
LOC: SPU 08:39
PROVIDERS: ATTEND Internal Medicine Hematology
DX: C90.00 Multiple myeloma not having achieved remission (principal); E78.00 Pure hypercholesterolemia, unspecified; Z86.718 Personal history of other venous thrombosis and embolism; R51 Headache; K20.9 Esophagitis, unspecified; K27.9 Peptic ulcer, site unspecified, unspecified as acute or chronic, without hemorrhage or perforation; Z95.828 Presence of other vascular implants and grafts; E79.0 Hyperuricemia without signs of inflammatory arthritis and tophaceous disease
CPT/HCPCS: 36415; 82232; 83615; 83883; 84550; 85025; 86334; 96401; G0463; J9041; 82040; 82247; 82310; 82374; 82435; 82565; 82947; 84075; 84132; 84155; 84295; 84450; 84460; 84520; 99212

== ENCOUNTER → 2017-12-17 | Outpatient (CLI) | payer MEDICARE, OTHER ==
[~2017-12-17] MED LIST changes: -BORTEZOMIB 3.5 MG INJS SC ONE; +CHOL200018 PO; -CHOL200022 PO; -DEXTROSE 5%(*) 100 ML BAG 100 ML IVPB PRN; -KCL/NS* 20 MEQ/1000 ML PREMIX 1,000 ML IV ONE; -LIDOCAINE/SOD BICARB 8.4% SYR ID PRN; -NS(*) 0.9% 100 ML BAG 100 ML IVPB PRN
== END ==
LOC: SPU 09:00
PROVIDERS: ATTEND Internal Medicine Hematology
DX: Z76.89 Persons encountering health services in other specified circumstances (principal)

== ENCOUNTER 2018-02-18 04:33 | Emergency (ER) | payer MEDICARE, OTHER ==
[~2018-02-18 04:33] MED LIST changes: -BORTEZOMIB 3.5 MG INJS SC ONE
--- NOTE | 2018-02-18 04:49 | ER Report ---
History and Physical Time Seen By MD: 04:49 Hx. of Stated Complaint: PT REPORTS HEADACHES AND WEAKNESS SINCE SATURDAY, LIGHTHEADED, ACHING BONES AND CHILLS, SOB, NAUSEA, HEAD AND NECK PAIN (LOLI ARMAS MD) HPI/ROS CHIEF COMPLAINT: weakness, nausea, sweats, headache, short of breath HISTORY OF PRESENT ILLNESS: This is a 67 year old female. She is having weakness for the last 5 days. She had her Velcade treatment last Saturday which she gets on a biweekly schedule. She usually has a couple of days of symptoms of weakness, fatigue and nausea after this. She felt this way on Saturday and , but did not recover like she usually does. She has a mild cough and is feeling a little short of breath, similar to the past when she had developed pneumonia. She has no runny nose or sore throat, but this is common for her in these cases as well. She has not been able to eat much over the last 5 days. She has not been drinking as much as usual as well, but the last few days trying to increase fluid intake to help with this. No fevers, but she did have chills on Saturday, and night sweats and feeling warms and flushed since then. Feels sweaty tonight. She has a headache on the left side of her head and pain in the left neck and trapezius area. No chest pain or palpitations. She has generalized weakness, difficult to stand, and having some lightheadedness when standing. General muscle aches as well. (LOLI ARMAS MD) Allergies: Coded Allergies: Streptokinase (Verified Allergy, Severe, CHILLING, FEVER, WEAKNESS, 02/03/13) clindamycin (Verified Allergy, Severe, HIVES, 02/03/13) Home Meds Active Scripts Cephalexin (KEFLEX) 500 Mg Capsule, 500 MG PO Q12H for 7 Days, #14 CAP Prov:LEONARDO SURESH MD 02/18/18 Amoxicillin (AMOXICILLIN) 500 Mg Capsule, 1 CAP PO x 1 dose, #4 CAPSULE 1 Refill Take four capsules 1 hour prior dental appointment Prov:DEMARCUS COLEY REFERRAL AND INFORMATION AIDE-BC, ONC 02/26/17 Allopurinol (ALLOPURINOL) 100 Mg Tablet, 100 MG PO QDAY, #30 TAB 6 Refills Prov:DEMARCUS COLEY Haley REFERRAL AND INFORMATION AIDE-BC, ONC 12/04/16 Pantoprazole Sodium (PANTOPRAZOLE SODIUM) 40 Mg Tablet.dr, 40 MG PO QDAY, #60 TAB.SR 9 Refills Prov:DEMARCUS COLEY Haley REFERRAL AND INFORMATION AIDE-BC, ONC 12/03/14 Reported Medications Lutein (LUTEIN) 20 Mg Capsule, 20 MG PO TID, CAPSULE 02/03/16 Pyridoxine Hcl (VITAMIN B-6) 100 Mg Tablet, 100 MG PO BID 02/03/16 Hydrochlorothiazide (HYDROCHLOROTHIAZIDE) 25 Mg Tablet, 1 TAB PO QDAY TAKE ONE TABLET BY MOUTH EVERY DAY 03/11/14 Simvastatin (SIMVASTATIN) 5 Mg Tablet, 10 MG PO HS, TAB 03/11/14 Cholecalciferol (Vitamin D3) (VITAMIN D) 2,000 Unit Tablet, 2 TAB PO DAILY 02/03/13 Aspirin (ASPIR 81) 81 Mg Tablet.dr, 81 MG PO QDAY, TAB 02/03/13 Acyclovir (ACYCLOVIR) 800 Mg Tablet, 800 MG PO BID 02/03/13 Reviewed Nurses Notes: Yes (LOLI ARMAS MD) Hx Smoking: No Smoking Status: Never Smoker Exposure to Second Hand Smoke?: No (LOLI ARMAS MD) Constitutional Vital Sign - Last 24 Hours 02/18/18 02/18/18 02/18/18 02/18/18 04:38 04:40 04:48 05:00 Temp 98.4 Pulse 104 97 Resp 14 12 B/P (MAP) 95/67 95/67 (76) 94/58 (70) Pulse Ox 90 92 O2 Delivery Room Air 02/18/18 02/18/18 02/18/18 02/18/18 05:03 05:17 05:18 05:19 Pulse 87 83 Resp 17 9 B/P (MAP) 95/59 (71) 99/70 (80) Pulse Ox 91 85 02/18/18 02/18/18 02/18/18 02/18/18 05:21 05:25 05:33 06:00 Pulse 85 79 88 93 Resp 11 B/P (MAP) 97/50 (66) 95/59 (71) 115/58 (77) 99/70 (80) 97/50 (66) Pulse Ox 92 11/20/18 02/18/18 02/18/18 02/18/18 06:03 06:18 06:20 06:25 Pulse 75 75 74 Resp 20 11 B/P (MAP) 95/63 (74) Pulse Ox 92 93 02/18/18 02/18/18 02/18/18 02/18/18 06:40 06:55 07:00 07:20 Pulse 77 Resp 17 B/P (MAP) 94/61 (72) 98/64 (75) 101/64 (76) Pulse Ox 91 02/18/18 02/18/18 02/18/18 02/18/18 07:25 07:30 07:40 08:00 Pulse 69 71 67 Resp 10 15 11 B/P (MAP) 104/52 (69) 110/72 (85) Pulse Ox 94 95 97 02/18/18 02/18/18 02/18/18 02/18/18 08:20 08:30 08:45 09:00 Pulse 72 69 69 Resp 11 16 11 B/P (MAP) 102/68 (79) 106/69 (81) Pulse Ox 97 94 92 02/18/18 02/18/18 02/18/18 02/18/18 09:15 09:20 09:25 09:40 Pulse 70 70 Resp 101 18 B/P (MAP) 97/63 (74) 92/60 (71) Pulse Ox 96 90 02/18/18 02/18/18 09:55 10:00 Pulse 73 Resp 15 B/P (MAP) 102/72 (82) Pulse Ox 92 (LEONARDO SURESH MD) Physical Exam General Appearance: The patient is alert. No acute distress. Orthostatic vital signs are negative. Eyes: Pupils are equal, round. Reactive to light. No pallor, injection or icterus. Extraocular movements are intact. ENT: Mucous membranes are moist. Normal oral mucosa. Posterior oropharynx is normal. Normal tympanic membranes and canals. Neck: Supple and non tender in anterior throat. No lymphadenopathy. Respiratory: Lungs are clear to auscultation. Cardiovascular: Regular rate and rhythm. No murmurs, gallops or rubs. Normal capillary refill. Gastrointestinal: Abdomen is soft and non tender. Nondistended. Normal active bowel sounds. No CVA tenderness. Neurological: Alert and oriented x3. Cranial nerves II through XII show no acute deficits on my exam. No focal neurologic deficits in the extremities, but generalized weakness. Skin: Warm and diaphoretic. No rashes. Musculoskeletal: Extremities are nontender. Full range of motion. No tenderness in palpation of the thoracic and lumbar spine. No pain in midline of cervical spine, but has some pain in left paraspinal muscles and trapezius, as well as the base of the skull on the left. DIFFERENTIAL DIAGNOSIS: After history and physical exam, differential diagnosis was considered for many non-specific symptoms and physical findings. Suspect could be dehydration, worry about infectious process such as pneumonia or influenza given her immunosuppression. Will look for metabolic causes as well. ([facility],LOLI Herron MD) Medical Decision Making Data Points Result Diagram: 02/18/18 0512 02/18/18 0512 Laboratory Hematology Test 02/18/18 05:12 02/18/18 05:16 02/18/18 09:09 Red Blood Count 4.51 M/uL (4.17-5.56) Mean Corpuscular Volume 96.4 fL (80.0-96.0) Mean Corpuscular Hemoglobin 34.7 pg (26.0-33.0) Mean Corpuscular Hemoglobin Concent 36.0 g/dL (32.0-36.0) Red Cell Distribution Width 13.1 % (11.5-14.5) Mean Platelet Volume 8.7 fL (7.2-11.1) Neutrophils (%) (Auto) 81.3 % (39.4-72.5) Lymphocytes (%) (Auto) 8.1 % (17.6-49.6) Monocytes (%) (Auto) 10.3 % (4.1-12.4) Eosinophils (%) (Auto) 0.1 % (0.4-6.7) Basophils (%) (Auto) 0.2 % (0.3-1.4) Nucleated RBC Relative Count (auto) 0.0 /100WBC Neutrophils # (Auto) 6.8 K/uL (2.0-7.4) Lymphocytes # (Auto) 0.7 K/uL (1.3-3.6) Monocytes # (Auto) 0.9 K/uL (0.3-1.0) Eosinophils # (Auto) 0.0 K/uL (0.0-0.5) Basophils # (Auto) 0.0 K/uL (0.0-0.1) Nucleated RBC Absolute Count (auto) 0.00 K/uL Sodium Level 131 mmol/L (137-145) Potassium Level 2.9 mmol/L (3.5-5.0) Chloride Level 94 mmol/L (98-107) Carbon Dioxide Level 27 mmol/L (22-31) Blood Urea Nitrogen 21 mg/dl (7-18) Creatinine 1.10 mg/dl (0.52-1.04) Glomerular Filtration Rate Calc 49.7 Random Glucose 170 mg/dl (75-110) Calcium Level 9.3 mg/dl (8.4-10.2) Total Bilirubin 1.4 mg/dl (0.2-1.3) Aspartate Amino Transf (AST/SGOT) 42 U/L (0-35) Alanine Aminotransferase (ALT/SGPT) 39 U/L (0-56) Alkaline Phosphatase 80 U/L (0-126) Troponin I < 0.012 ng/ml B-Type Natriuretic Peptide 11 pg/ml (0-100) Total Protein 7.2 g/dl (6.3-8.2) Albumin 3.8 g/dl (3.5-5.0) Amylase Level 57 U/L (0-110) Lipase 57 U/L (23-300) Influenza Virus Type A (PCR) Negative (NEGATIVE) Influenza Virus Type B (PCR) Negative (NEGATIVE) Urine Color Ilana Urine Clarity Cloudy Urine pH 5.0 pH (4.8-9.5) Urine Specific [place] 1.016 Urine Protein 30 mg/dL (NEGATIVE) Urine Glucose (UA) Negative mg/dL (NEGATIVE) Urine Ketones Negative mg/dL (NEGATIVE) Urine Blood Small (NEGATIVE) Urine Nitrite Negative (NEGATIVE) Urine Bilirubin Negative (NEGATIVE) Urine Urobilinogen 2.0 mg/dL (0.2-1.9) Urine Leukocyte Esterase Large (NEGATIVE) Urine RBC 13 /HPF (0-2/HPF) Urine WBC 360 /HPF (0-5/HPF) Urine WBC Clumps Many /HPF Urine Squamous Epithelial Cells Many /LPF (</=FEW) Urine Transitional Epithelial Cells Many /LPF (NONE-FEW) Urine Bacteria Many /HPF (NONE-FEW) Urine Hyaline Casts Many /LPF (NONE-FEW) Urine Mucus Few /HPF (NONE-FEW) Chemistry Test 02/18/18 05:12 02/18/18 05:16 02/18/18 09:09 White Blood Count 8.3 k/uL (4.5-11.0) Red Blood Count 4.51 M/uL (4.17-5.56) Hemoglobin 15.6 g/dL (12.0-16.0) Hematocrit 43.4 % (34.0-47.0) Mean Corpuscular Volume 96.4 fL (80.0-96.0) Mean Corpuscular Hemoglobin 34.7 pg (26.0-33.0) Mean Corpuscular Hemoglobin Concent 36.0 g/dL (32.0-36.0) Red Cell Distribution Width 13.1 % (11.5-14.5) Platelet Count 152 K/uL (150-450) Mean Platelet Volume 8.7 fL (7.2-11.1) Neutrophils (%) (Auto) 81.3 % (39.4-72.5) Lymphocytes (%) (Auto) 8.1 % (17.6-49.6) Monocytes (%) (Auto) 10.3 % (4.1-12.4) Eosinophils (%) (Auto) 0.1 % (0.4-6.7) Basophils (%) (Auto) 0.2 % (0.3-1.4) Nucleated RBC Relative Count (auto) 0.0 /100WBC Neutrophils # (Auto) 6.8 K/uL (2.0-7.4) Lymphocytes # (Auto) 0.7 K/uL (1.3-3.6) Monocytes # (Auto) 0.9 K/uL (0.3-1.0) Eosinophils # (Auto) 0.0 K/uL (0.0-0.5) Basophils # (Auto) 0.0 K/uL (0.0-0.1) Nucleated RBC Absolute Count (auto) 0.00 K/uL Glomerular Filtration Rate Calc 49.7 Calcium Level 9.3 mg/dl (8.4-10.2) Total Bilirubin 1.4 mg/dl (0.2-1.3) Aspartate Amino Transf (AST/SGOT) 42 U/L (0-35) Alanine Aminotransferase (ALT/SGPT) 39 U/L (0-56) Alkaline Phosphatase 80 U/L (0-126) Troponin I < 0.012 ng/ml B-Type Natriuretic Peptide 11 pg/ml (0-100) Total Protein 7.2 g/dl (6.3-8.2) Albumin 3.8 g/dl (3.5-5.0) Amylase Level 57 U/L (0-110) Lipase 57 U/L (23-300) Influenza Virus Type A (PCR) Negative (NEGATIVE) Influenza Virus Type B (PCR) Negative (NEGATIVE) Urine Color Ilana Urine Clarity Cloudy Urine pH 5.0 pH (4.8-9.5) Urine Specific [place] 1.016 Urine Protein 30 mg/dL (NEGATIVE) Urine Glucose (UA) Negative mg/dL (NEGATIVE) Urine Ketones Negative mg/dL (NEGATIVE) Urine Blood Small (NEGATIVE) Urine Nitrite Negative (NEGATIVE) Urine Bilirubin Negative (NEGATIVE) Urine Urobilinogen 2.0 mg/dL (0.2-1.9) Urine Leukocyte Esterase Large (NEGATIVE) Urine RBC 13 /HPF (0-2/HPF) Urine WBC 360 /HPF (0-5/HPF) Urine WBC Clumps Many /HPF Urine Squamous Epithelial Cells Many /LPF (</=FEW) Urine Transitional Epithelial Cells Many /LPF (NONE-FEW) Urine Bacteria Many /HPF (NONE-FEW) Urine Hyaline Casts Many /LPF (NONE-FEW) Urine Mucus Few /HPF (NONE-FEW) Urinalysis Test 02/18/18 09:09 Urine Color Ilana Urine Clarity Cloudy Urine pH 5.0 pH (4.8-9.5) Urine Specific [place] 1.016 Urine Protein 30 mg/dL (NEGATIVE) Urine Glucose (UA) Negative mg/dL (NEGATIVE) Urine Ketones Negative mg/dL (NEGATIVE) Urine Blood Small (NEGATIVE) Urine Nitrite Negative (NEGATIVE) Urine Bilirubin Negative (NEGATIVE) Urine Urobilinogen 2.0 mg/dL (0.2-1.9) Urine Leukocyte Esterase Large (NEGATIVE) Urine RBC 13 /HPF (0-2/HPF) Urine WBC 360 /HPF (0-5/HPF) Urine WBC Clumps Many /HPF Urine Squamous Epithelial Cells Many /LPF (</=FEW) Urine Transitional Epithelial Cells Many /LPF (NONE-FEW) Urine Bacteria Many /HPF (NONE-FEW) Urine Hyaline Casts Many /LPF (NONE-FEW) Urine Mucus Few /HPF (NONE-FEW) (LEONARDO SURESH MD) EKG/Imaging EKG Interpretation 12 lead EKG: Rhythm: normal sinus rhythm, heart rate 90 Ava: Leftward axis QRS: normal ST segments: Nonspecific flattening of the T waves, no ST elevation or depression noted Imaging CHEST PA AND LAT HISTORY: Shortness of breath. Weakness. COMPARISON: 07/05/2017. FINDINGS: Lines/tubes: None. Lungs/pleura: Mild atelectasis/scarring versus infiltrate in the left lung base. No pleural effusion or pneumothorax. Heart: Negative. Mediastinum: Negative. Bony structures/body wall: Degenerative changes in the spine. No acute osseous findings. IMPRESSION: Mild atelectasis/scarring versus infiltrate in the left lung base. Report Dictated By: Matias Gallagher MD at 02/18/2018 6:05 AM (LOLI ARMAS MD) ED Course/Re-evaluation Clinical Indication for ER IV: Hydration, IV Access (LOLI ARMAS MD) ED Course 67 f presents with constellation of symptoms concerning for infection, lay in face of immunocompromise. She remains hd stable and looks well throughout ed course. Ultimately, ua c/w uti, which is c/w pt's sypmtoms. Reasonable to d/c as she feels well and is not neutropenic, but with close f/u and SRP's. Decision to Disposition Date: Feb 18, 2018 Decision to Disposition Time: 08:00 (LEONARDO SURESH MD) Depart Departure Latest Vital Signs Vital Signs Date Time Temp Pulse Resp B/P (MAP) Pulse Ox O2 Delivery O2 Flow Rate FiO2 02/18/18 10:00 102/72 (82) 02/18/18 09:55 73 15 92 02/18/18 04:38 98.4 Room Air (LEONARDO SURESH MD) Impression: Primary Impression: UTI (urinary tract infection) Additional Impressions: Hypokalemia Dehydration Condition: Improved Disposition: HOME OR SELF-CARE Referrals: JALYN STERLING DO (PCP) New Scripts Cephalexin (KEFLEX) 500 Mg Capsule 500 MG PO Q12H for 7 Days, #14 CAP Prov: LEONARDO SURESH MD 02/18/18 Patient Instructions: Dehydration (ED), Hypokalemia (ED) Additional Instructions: As we discussed, I offered admission given your medical history and presentation; it is reasonable to try outpatient treatment, but please return immediately if you are unable to tolerate food or fluids, feel lightheaded or generally worse. Problem Qualifiers Primary Impression: UTI (urinary tract infection) Urinary tract infection type: acute cystitis Hematuria presence: without hematuria Qualified Codes: N30.00 - Acute cystitis without hematuria LOLI ARMAS MD Feb 18, 2018 04:49 LEONARDO SURESH MD Feb 18, 2018 10:19
[2018-02-18] MEDS ORDERED: NS(*) 0.9% 1000 ML BAG 1,000 ML IV ONE ×2 (05:00→06:05)
[2018-02-18 05:20] LABS: PLATELET COUNT, AUTOMATED 152 K/uL (150-450)
--- NOTE | 2018-02-18 05:40 | EKG ---
FACILITY: [facility] [place] PATIENT NAME: ENMA BROWN : [id number] MR: [id number] V: [id number] EXAM DATE: ORDERING PHYSICIAN: LOLI ARMAS TECHNOLOGIST: PAZ Test Reason : NEURO Blood Pressure : / mmHG Vent. Rate : 090 BPM Atrial Rate : 090 BPM P-R Int : 138 ms QRS Dur : 084 ms QT Int : 354 ms P-R-T Axes : 020 -18 004 degrees QTc Int : 433 ms Normal sinus rhythm Nonspecific ST and T wave abnormality Abnormal ECG No previous ECGs available Confirmed by Adonis Mai ([id number]) on 02/18/2018 6:44:09 AM Referred By: Confirmed By:Adonis Smith
[2018-02-18] MEDS ORDERED: KCL (*) 20 MEQ/100 ML PREMIX 100 ML IV ONE (06:05)
[2018-02-18] MEDS ORDERED: ACETAMINOPHEN 500 MG TAB PO ONE (06:05)
--- NOTE | 2018-02-18 06:11 | RADIOLOGY IMAGING REPORT ---
FACILITY: [facility] PATIENT NAME: Rosa Quiroga : 1950 MR: [id number] V: [id number] EXAM DATE: ORDERING PHYSICIAN: LOLI ARMAS TECHNOLOGIST: Location: [facility] Patient: Rosa Qiuroga : 1950 Visit/Account:[id number] Date of Sevice: 02/18/2018 CHEST PA AND LAT HISTORY: Shortness of breath. Weakness. COMPARISON: 07/05/2017. FINDINGS: Lines/tubes: None. Lungs/pleura: Mild atelectasis/scarring versus infiltrate in the left lung base. No pleural effusion or pneumothorax. Heart: Negative. Mediastinum: Negative. Bony structures/body wall: Degenerative changes in the spine. No acute osseous findings. IMPRESSION: Mild atelectasis/scarring versus infiltrate in the left lung base. Report Dictated By: Matias Gallagher MD at 02/18/2018 6:05 AM Report E-Signed By: Matias Gallagher MD at 02/18/2018 6:07 AM WSN:[id number]
[2018-02-18] MEDS ORDERED: APAP/HYDROCODONE 325/5 TAB PO ONE (07:30)
[2018-02-18] MEDS ORDERED: CYCLOBENZAPRINE HCL 10 MG TAB PO ONE (07:30)
--- NOTE | 2018-02-18 08:42 | RADIOLOGY IMAGING REPORT ---
FACILITY: [facility] PATIENT NAME: Rosa Quiroga : 1950 MR: [id number] V: [id number] EXAM DATE: ORDERING PHYSICIAN: LEONARDO SURESH TECHNOLOGIST: Location: [facility] Patient: Rosa Quiroga : 1950 Visit/Account:[id number] Date of Sevice: 02/18/2018 CHEST W/O CONTRAST HISTORY: cough, shortness of breath, equivocal xray TECHNIQUE: CT chest without intravenous contrast. One of the following dose optimization techniques was utilized in the performance of this exam: Autom ated exposure control; adjustment of the mA and/or kV according to the patient's size; or use of an i terative reconstruction technique. Specific details can be referenced in the facility's radiology C T exam operational policy. CONTRAST: None. COMPARISON: Chest radiograph from same date. FINDINGS: Heart/vessels: Mild calcifications within the coronary arteries. Otherwise negative. Mediastinum: Negative. Lymph nodes: Negative. Lungs/pleura: 4 mm solid nodule within the right upper lobe (image 74 of series 4). 2 mm subpleural nodule within the right upper lobe (image 117). Punctate 1 mm nodule within the right upper lobe (i mage 138). 4 mm solid nodule within the left lower lobe (image 181). Scattered additional areas of mild linear atelectasis and/or scarring within the lungs. Mild/moderat e bibasilar atelectasis. No focal consolidation or pulmonary infiltrate identified. Visualized upper abdomen: Partial visualization of a small cyst within the right kidney. Otherwise negative. Bones/soft tissues: Negative. IMPRESSION: 1. No acute findings. No pulmonary infiltrate or consolidation identified. 2. Scattered pulmonary micronodules measuring up to 4 mm. Please see Fleischner guidelines below. 3. Additional incidental/chronic findings, as above. FLEISCHNER SOCIETY FOLLOW-UP GUIDELINES FOR NEWLY DETECTED INCIDENTAL NODULES IN PERSONS 35 YEARS OF AGE OR OLDER. *THESE RECOMMENDATIONS DO NOT APPLY TO LUNG CANCER SCREENING, PATIENTS WITH IMMUNOSUPPRESSION , OR PA TIENTS WITH KNOWN PRIMARY MALIGNANCY. MULTIPLE SOLID NODULES If largest nodule size is less than 6 mm: Low risk patient - no follow up needed High risk patient - Optional CT at 12 months. LOW RISK PATIENT: Minimal or absent history of tobacco use and of other known risk factors. HIGH RISK PATIENT: Tobacco use, family history of lung cancer, upper pulmonary lobe location of nodul e, presence of emphysema, pulmonary fibrosis, older age. Robert H, Mckayla DP, Mayra ORTEZ, et al. Guidelines for Management of Incidental Pulmonary Nodules Dete cted on CT Images: From the Fleischner Society 2017. Radiology. Report Dictated By: Roberto Carlos Lopez MD at 02/18/2018 8:32 AM Report E-Signed By: Roberto Carlos Lopez MD at 02/18/2018 8:37 AM WSN:[id number]
[2018-02-18] MEDS ORDERED: cefTRIAXone 1 GM VIAL IVP ONE (09:40)
[2018-02-18 10:00] VITALS: BP 102/72
[2018-02-18] MEDS ORDERED: CEPH-13 PO (10:18)
== END 2018-02-18 10:26 | disposition home or self-care (01) ==
LOC: ER 04:48
DX: N30.00 Acute cystitis without hematuria (principal); E87.6 Hypokalemia; E86.0 Dehydration
CPT/HCPCS: 71046; 71250; 81001; 82150; 83690; 83880; 84484; 85025; 87088; 87502; 93005; 96361; 96365; 96366; 96375; 99284; A9270; J0696; J3480; J7030; 82040; 82247; 82310; 82374; 82435; 82565; 82947; 84075; 84132; 84155; 84295; 84450; 84460; 84520

== ENCOUNTER 2018-02-24 08:46 | Outpatient (RCR) | payer MEDICARE, OTHER ==
[2017-12-30 09:18] VITALS: BP 117/79
[2017-12-30 09:35] LABS: PLATELET COUNT, AUTOMATED 220 K/uL (150-450)
[2017-12-30 09:43] VITALS: BP 115/89
[2017-12-31 09:40] VITALS: BP 119/74
[2018-01-13 09:37] VITALS: BP 103/85
[2018-01-13 09:39] LABS: PLATELET COUNT, AUTOMATED 216 K/uL (150-450)
[2018-01-14 09:14] VITALS: BP 117/72
[2018-01-17 08:58] VITALS: BP 121/73
--- NOTE | 2018-01-17 13:55 | [facility] ONCOLOGY NOTE ---
EVENT DATE: January 17, 2018 DIAGNOSES 1. Multiple myeloma. 2. Hypercholesterolemia. 3. History of deep vein thrombosis of the lower extremity. 4. Esophagitis and ulcer disease. CHIEF COMPLAINT Patient is here today for followup of her multiple myeloma on maintenance Velcade therapy. ONCOLOGY HISTORY The patient is a 67-year-old female who was found during her evaluation in July 2011 by CBC and chem panel to have mild leukopenia of 2.4 with atypical lymphocytes in the peripheral blood. Her total protein at that time was high as well as liver enzymes. Total protein was 8.2, and albumin was 3.7. The patient had a serum protein electrophoresis which showed 0.31 g/dL monoclonal protein. She had a bone marrow aspiration biopsy done on July 19, 2011, which showed kappa monoclonal plasma cell dyscrasia. Peripheral blood was circulating plasma cells representing 8% of the nucleated cells. Beta-2 macroglobulin was high at 4. IgG was low at 374, IgA low at 14, and IgM low at 19. A 24-hour urine showed 1399 mg/dL free monoclonal kappa light change (Bence-Martinez protein) for 24 hours. FISH for multiple myeloma from the bone marrow biopsy came back abnormal for +1, -13, and translocation 14 and 16. Scheduled bone survey came back negative for lytic bone lesions, but MRI of the cervical and thoracic spine did reveal abnormal signal throughout the lower cervical and thoracic spine suggestive of underlying myeloproliferative bone marrow disorder. The patient received chemotherapy with VRd regimen with Velcade, Revlimid, and dexamethasone for four courses between August 09, 2011, through November 17, 2011. This was followed by autologous stem cell transplant after pre-palliative regimen with Melphalan 100 mg/m2 given on December 10, 2011, through December 11, 2011. She received stem cell infusion on December 13, 2011. The patient started maintenance Velcade therapy on August 08, 2014. HISTORY OF PRESENT ILLNESS The patient is here today for followup of her multiple myeloma on maintenance Velcade therapy. She is doing fine currently, and she is totally asymptomatic today. PAST MEDICAL HISTORY 1. DVT of the left leg in 1999. 2. Hypercholesterolemia. 3. Esophagitis with peptic ulcer disease. PAST SURGICAL HISTORY 1. Surgery for broken right ankle in 2002. 2. Inferior vena cava filter placed in 1999. 3. Tubal ligation. SOCIAL HISTORY The patient is . She has a son and daughter. 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 Denies any abuse of tobacco, alcohol, or drugs. She has about one drink per year. FAMILY HISTORY Mother had breast cancer at the age of 63. Father had liver cancer at the age of 73. Aunt with breast cancer, does not know exactly the age. Grandmother had ovarian cancer at the age of 63. CURRENT MEDICATIONS 1. Multivitamins once daily. 2. Calcium 200 mg once daily. 3. Aspirin 81 mg daily. 4. Pantoprazole 40 mg daily. 5. Acyclovir 800 mg daily. 6. Vitamin D 4000 international units once daily. 7. Zometa 4 mg intravenous monthly. 8. Allopurinol 100 mg daily. ALLERGIES 1. STREPTOKINASE, which caused hypotension. 2. CLINDAMYCIN, which caused hives. REVIEW OF SYSTEMS CONSTITUTIONAL: No appetite or weight change. No fever, chills or sweating. No recent infection. HEENT: Ears: No tinnitus or hearing problem. Nose: No nasal discharge or epistaxis. Throat: No sore throat or mouth ulcers. Eyes: No diplopia or visual changes. RESPIRATORY: No shortness of breath. No cough, expectoration or hemoptysis. CARDIOVASCULAR: No chest pain, orthopnea, or paroxysmal nocturnal dyspnea (PND). No edema. No palpitations. GASTROINTESTINAL: No nausea or vomiting. No diarrhea or constipation. No change in bowel movements. No heartburn or swallowing difficulties. No abdominal pain. No jaundice. No hematemesis, melena or rectal bleeding. GENITOURINARY: No hematuria or dysuria. MUSCULOSKELETAL: No pain in the muscles, joints or bones. NEUROLOGICAL: No tingling or numbness in the hands or feet. No headaches or convulsions. HEMATOLOGIC/LYMPHATIC: No bleeding or easy bruising. No weakness or fatigued. No enlarged lymph nodes. SKIN: No skin rash or lumps. PSYCHIATRIC: No anxiety or depression. PHYSICAL EXAMINATION GENERAL: Looks stable. Well-developed, well-nourished, and in no acute distress. VITAL SIGNS: Blood pressure 121/73, pulse 79 per minute, respirations 16 per minute, temperature 97.3, pulse oximetry 91% on room air. HEENT: Head: Atraumatic. No sinus tenderness to palpation. Eyes: No icterus or conjunctivitis. Mouth and throat: No oral thrush or mucositis. NECK: Supple. No cervical or supraclavicular lymphadenopathy. LUNGS: Clear to auscultation and percussion bilaterally. HEART: Regular rate and rhythm. No gallops, murmurs, clicks or rubs. ABDOMEN: Soft and lax. No tenderness. No hepatosplenomegaly. No masses. EXTREMITIES: No cyanosis, clubbing or edema. LYMPHATICS: No peripheral lymphadenopathy. NEUROLOGICAL: Conscious, alert and oriented times three. No focal motor or sensory deficits. PSYCHIATRIC: Mood and affect appear normal. SKIN: No skin rash, bruise or purpuric eruption. DIAGNOSTIC/LABORATORY STUDIES CBC shows a white count of 5.8, hemoglobin 16.3, hematocrit 47.9, platelets 216,000. Chem panel is totally normal except the AST is 38. Beta-2 microglobulin is normal at 1.9. [place] free light chain is 6.15, which is stable, and the kappa to lambda free light chain ratio is 9.01, while lambda free light chain is 0.68. IgG level is 686, which is mildly low. IgA is normal at 155. IgM is normal at 56. Immunoelectrophoresis showed monoclonal band of IgG kappa at 0.23 g/dL, which is stable. ASSESSMENT 1. Multiple myeloma with plasma cell leukemia with 60% plasma cells in the bone marrow and 8% plasma cells in the peripheral blood. The skeletal bone survey was negative for lytic bone lesions. MRI of the cervical spine did reveal bone marrow signal throughout the lower cervical and thoracic spine, suggestive of underlying bone disease. Patient received VRd chemotherapy with Velcade, Revlimid, and dexamethasone between August 09, 2011 through November 04, 2011, followed by autologous stem cell transplant March 16, 2012. She received melphalan conditioning at that time. Bone marrow aspiration biopsy after the procedure revealed the presence of 4% to 5% kappa monoclonal cells and 0.9 g/dL IgG kappa monoclonal protein. Her M-spike marcelo, so the patient started maintenance Velcade therapy August 08, 2014. She has been maintained on Velcade since then with stabilization of her monoclonal protein. Her current IgG kappa level is 0.23 g/dL, which is stable. Patient is totally asymptomatic today. I am planning to continue same treatment with Velcade every other week, and I will see her in a month with CBC, chem panel, LDH, uric acid, and myeloma profile. 2. Esophagitis, on pantoprazole. 3. History of deep venous thrombosis, left lower extremity in 1999, status post inferior vena cava filter placement. 4. Hyperuricemia, under control with allopurinol 100 mg daily. PLAN 1. Velcade every other week. 2. CBC and chem panel to be checked every other week prior to Velcade therapy. 3. Patient to return in one month with CBC, chem panel, LDH, uric acid, and myeloma profile. 4. Acyclovir 800 mg twice daily as a prophylaxis against shingles. 5. Allopurinol 100 mg daily. 6. Patient is to contact us for any new concerns or complaints. MTDD
[2018-01-27 09:28] VITALS: BP 106/63
[2018-01-27 09:41] LABS: PLATELET COUNT, AUTOMATED 201 K/uL (150-450)
[2018-01-28 09:21] VITALS: BP 113/74
[2018-02-10 09:52] LABS: PLATELET COUNT, AUTOMATED 202 K/uL (150-450)
[2018-02-10 11:28] VITALS: BP 118/92
[2018-02-11 09:31] VITALS: BP 128/63
[~2018-02-24] VITALS: Ht 160 cm; Wt 78.2 kg
[~2018-02-24 08:46] MED LIST changes: +BORTEZOMIB 3.5 MG INJS SC ONE; +CEPH-13 PO; +INFLUENZA VIRUS VAC 0.5ML SYR IM ONLY ONE
[2018-02-24 09:34] LABS: PLATELET COUNT, AUTOMATED 284 K/uL (150-450)
[2018-02-25] MEDS ORDERED: BORTEZOMIB 3.5 MG INJS SC ONE (08:55)
== END 2018-02-27 ==
LOC: SPU 08:46
PROVIDERS: ATTEND Internal Medicine Hematology
DX: C90.00 Multiple myeloma not having achieved remission (principal); Z23 Encounter for immunization; K20.9 Esophagitis, unspecified; Z86.718 Personal history of other venous thrombosis and embolism; E79.0 Hyperuricemia without signs of inflammatory arthritis and tophaceous disease; Z79.899 Other long term (current) drug therapy; Z79.82 Long term (current) use of aspirin; E78.00 Pure hypercholesterolemia, unspecified
CPT/HCPCS: 36415; 82232; 83615; 83883; 84550; 85025; 86334; 90471; 96401; G0463; J9041; Q2037; 82040; 82247; 82310; 82374; 82435; 82565; 82947; 84075; 84132; 84155; 84295; 84450; 84460; 84520; 90674; 99212

== ENCOUNTER 2018-06-02 09:07 | Outpatient (RCR) | payer MEDICARE, OTHER ==
[2018-03-10 08:58] VITALS: BP 146/78
[2018-03-10 09:09] LABS: PLATELET COUNT, AUTOMATED 193 K/uL (150-450)
[2018-03-11 09:22] VITALS: BP 120/81
[2018-03-26 09:21] VITALS: BP 125/81
[2018-03-28 08:26] VITALS: BP 121/76
--- NOTE | 2018-03-28 09:47 | EL-[facility] ONCOLOGY NOTE ---
EVENT DATE: March 28, 2018 DIAGNOSES 1. Multiple myeloma. 2. Hypercholesterolemia. 3. History of deep vein thrombosis of the lower extremity. 4. Esophagitis and ulcer disease. CHIEF COMPLAINT Patient is here today for followup of her multiple myeloma, on maintenance Velcade therapy. ONCOLOGY HISTORY The patient is a 67-year-old female who was found during her evaluation in July 2011 by CBC and chem panel to have mild leukopenia of 2.4 with atypical lymphocytes in the peripheral blood. Her total protein at that time was high as well as liver enzymes. Total protein was 8.2, and albumin was 3.7. The patient had a serum protein electrophoresis which showed 0.31 g/dL monoclonal protein. She had a bone marrow aspiration biopsy done on July 19, 2011, which showed kappa monoclonal plasma cell dyscrasia. Peripheral blood was circulating plasma cells representing 8% of the nucleated cells. Beta-2 macroglobulin was high at 4. IgG was low at 374, IgA low at 14, and IgM low at 19. A 24-hour urine showed 1399 mg/dL free monoclonal kappa light change (Bence-Martinze protein) for 24 hours. FISH for multiple myeloma from the bone marrow biopsy came back abnormal for +1, -13, and translocation 14 and 16. Scheduled bone survey came back negative for lytic bone lesions, but MRI of the cervical and thoracic spine did reveal abnormal signal throughout the lower cervical and thoracic spine suggestive of underlying myeloproliferative bone marrow disorder. The patient received chemotherapy with VRd regimen with Velcade, Revlimid, and dexamethasone for four courses between August 09, 2011, through November 17, 2011. This was followed by autologous stem cell transplant after pre-palliative regimen with Melphalan 100 mg/m2 given on December 10, 2011, through December 11, 2011. She received stem cell infusion on December 13, 2011. The patient started maintenance Velcade therapy on August 08, 2014. HISTORY OF PRESENT ILLNESS The patient is here today for followup of her multiple myeloma, on maintenance therapy with Velcade. She had a recent urinary tract infection. She has occasional headache but other than that her general condition is very good. PAST MEDICAL HISTORY 1. DVT of the left leg in 1999. 2. Hypercholesterolemia. 3. Esophagitis with peptic ulcer disease. PAST SURGICAL HISTORY 1. Surgery for broken right ankle in 2002. 2. Inferior vena cava filter placed in 1999. 3. Tubal ligation. SOCIAL HISTORY The patient is . She has a son and daughter. 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 Denies any abuse of tobacco, alcohol, or drugs. She has about one drink per year. FAMILY HISTORY Mother had breast cancer at the age of 63. Father had liver cancer at the age of 73. Aunt with breast cancer, does not know exactly the age. Grandmother had ovarian cancer at the age of 63. CURRENT MEDICATIONS 1. Multivitamins once daily. 2. Calcium 200 mg once daily. 3. Aspirin 81 mg daily. 4. Pantoprazole 40 mg daily. 5. Acyclovir 800 mg daily. 6. Vitamin D 4000 international units once daily. 7. Zometa 4 mg intravenous monthly. 8. Allopurinol 100 mg daily. ALLERGIES 1. STREPTOKINASE, which caused hypotension. 2. CLINDAMYCIN, which caused hives. REVIEW OF SYSTEMS CONSTITUTIONAL: No appetite or weight change. No fever, chills or sweating. No recent infection. HEENT: Ears: No tinnitus or hearing problem. Nose: No nasal discharge or epistaxis. Throat: No sore throat or mouth ulcers. Eyes: No diplopia or visual changes. RESPIRATORY: No shortness of breath. No cough, expectoration or hemoptysis. CARDIOVASCULAR: No chest pain, orthopnea, or paroxysmal nocturnal dyspnea (PND). No edema. No palpitations. GASTROINTESTINAL: No nausea or vomiting. No diarrhea or constipation. No change in bowel movements. No heartburn or swallowing difficulties. No abdominal pain. No jaundice. No hematemesis, melena or rectal bleeding. GENITOURINARY: Recent urinary tract infection. MUSCULOSKELETAL: No pain in the muscles, joints or bones. NEUROLOGICAL: Occasional headache. HEMATOLOGIC/LYMPHATIC: No bleeding or easy bruising. No weakness or fatigued. No enlarged lymph nodes. SKIN: No skin rash or lumps. PSYCHIATRIC: No anxiety or depression. PHYSICAL EXAMINATION GENERAL: Looks stable. Well-developed, well-nourished, and in no acute distress. VITAL SIGNS: Blood pressure 121/76, pulse 88 per minute, respirations 16 per minute, temperature 97.2, pulse oximetry 91% on room air. HEENT: Head: Atraumatic. No sinus tenderness to palpation. Eyes: No icterus or conjunctivitis. Mouth and throat: No oral thrush or mucositis. NECK: Supple. No cervical or supraclavicular lymphadenopathy. LUNGS: Clear to auscultation and percussion bilaterally. HEART: Regular rate and rhythm. No gallops, murmurs, clicks or rubs. ABDOMEN: Soft and lax. No tenderness. No hepatosplenomegaly. No masses. EXTREMITIES: No cyanosis, clubbing or edema. LYMPHATICS: No peripheral lymphadenopathy. NEUROLOGICAL: Conscious, alert and oriented times three. No focal motor or sensory deficits. PSYCHIATRIC: Mood and affect appear normal. SKIN: No skin rash, bruise or purpuric eruption. DIAGNOSTIC/LABORATORY STUDIES CBC shows a white count of 5.1, hemoglobin 15.2, hematocrit 43.6, platelets 211,000. Chem panel is totally normal except AST of 40. Beta-2 microglobulin is normal at 2.1. [place] free light chain is high at 9.78. Lambda free light chain is normal at 0.79. [place] to lambda free light chain ratio is 12.38, which is high. IgG level is 665, which is low. IgA is normal at 158 and IgM is normal at 35. Serum protein electrophoresis shows a monoclonal protein of IgG kappa and current level is 0.24 g/dL. ASSESSMENT 1. Multiple myeloma with plasma cell leukemia with 60% plasma cells in the bone marrow and 8% plasma cells in the peripheral blood. The skeletal bone survey was negative for lytic bone lesions. MRI of the cervical spine did reveal bone marrow signal throughout the lower cervical and thoracic spine, suggestive of underlying bone disease. Patient received VRd chemotherapy with Velcade, Revlimid, and dexamethasone between August 09, 2011 through November 04, 2011, followed by autologous stem cell transplant March 16, 2012. She received melphalan conditioning at that time. Bone marrow aspiration biopsy after the procedure revealed the presence of 4% to 5% kappa monoclonal cells and 0.9 g/dL IgG kappa monoclonal protein. Her M-spike marcelo so the patient started maintenance Velcade therapy August 08, 2014. She has been maintained on Velcade since then with stabilization of her monoclonal protein. Her current IgG kappa level is 0.24 g/dL, which is stable. Patient is asymptomatic and is doing very well currently. I am planning to continue followup. I will see her again in a month from now with CBC, chem panel, LDH, uric acid and myeloma profile. She is really doing very well. 2. Esophagitis, on pantoprazole. 3. History of deep venous thrombosis, left lower extremity in 1999, status post inferior vena cava filter placement. 4. Hyperuricemia, under control with allopurinol 100 mg daily. PLAN 1. Velcade every other week. 2. CBC and chem panel to be checked every other week prior to Velcade therapy. 3. Patient to return in one month with CBC, chem panel, LDH, uric acid and myeloma profile. 4. Acyclovir 800 mg twice daily as a prophylaxis against shingles. 5. Allopurinol 100 mg daily. 6. Patient is to contact us for any new concerns or complaints. MTDD
[2018-04-07 09:16] VITALS: BP 123/76
[2018-04-07 09:41] LABS: PLATELET COUNT, AUTOMATED 203 K/uL (150-450)
[2018-04-08 08:58] VITALS: BP 122/78
--- NOTE | 2018-04-08 09:11 | NUR ---
Pt completed initial HADS form - A:0, D:0 (no concerns).
[2018-04-22 08:59] VITALS: BP 115/66
[2018-04-25 08:57] VITALS: BP 110/72
--- NOTE | 2018-04-25 10:52 | [facility] ONCOLOGY NOTE ---
EVENT DATE: April 25, 2018 DIAGNOSES 1. Multiple myeloma. 2. Hypercholesterolemia. 3. History of deep vein thrombosis of the lower extremity. 4. Esophagitis and ulcer disease. CHIEF COMPLAINT Patient is here today for followup of her multiple myeloma, on maintenance Velcade therapy. ONCOLOGY HISTORY The patient is a 67-year-old female who was found during her evaluation in July 2011 by CBC and chem panel to have mild leukopenia of 2.4 with atypical lymphocytes in the peripheral blood. Her total protein at that time was high as well as liver enzymes. Total protein was 8.2, and albumin was 3.7. The patient had a serum protein electrophoresis which showed 0.31 g/dL monoclonal protein. She had a bone marrow aspiration biopsy done on July 19, 2011, which showed kappa monoclonal plasma cell dyscrasia. Peripheral blood was circulating plasma cells representing 8% of the nucleated cells. Beta-2 macroglobulin was high at 4. IgG was low at 374, IgA low at 14, and IgM low at 19. A 24-hour urine showed 1399 mg/dL free monoclonal kappa light change (Bence-Martinez protein) for 24 hours. FISH for multiple myeloma from the bone marrow biopsy came back abnormal for +1, -13, and translocation 14 and 16. Scheduled bone survey came back negative for lytic bone lesions, but MRI of the cervical and thoracic spine did reveal abnormal signal throughout the lower cervical and thoracic spine suggestive of underlying myeloproliferative bone marrow disorder. The patient received chemotherapy with VRd regimen with Velcade, Revlimid, and dexamethasone for four courses between August 09, 2011, through November 17, 2011. This was followed by autologous stem cell transplant after pre-palliative regimen with Melphalan 100 mg/m2 given on December 10, 2011, through December 11, 2011. She received stem cell infusion on December 13, 2011. The patient started maintenance Velcade therapy on August 08, 2014. HISTORY OF PRESENT ILLNESS The patient is here today for followup of her multiple myeloma, on Velcade maintenance therapy. She is doing fine currently and totally asymptomatic except for occasional headache. PAST MEDICAL HISTORY 1. DVT of the left leg in 1999. 2. Hypercholesterolemia. 3. Esophagitis with peptic ulcer disease. PAST SURGICAL HISTORY 1. Surgery for broken right ankle in 2002. 2. Inferior vena cava filter placed in 1999. 3. Tubal ligation. SOCIAL HISTORY The patient is . She has a son and daughter. 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 Denies any abuse of tobacco, alcohol, or drugs. She has about one drink per year. FAMILY HISTORY Mother had breast cancer at the age of 63. Father had liver cancer at the age of 73. Aunt with breast cancer, does not know exactly the age. Grandmother had ovarian cancer at the age of 63. CURRENT MEDICATIONS 1. Multivitamins once daily. 2. Calcium 200 mg once daily. 3. Aspirin 81 mg daily. 4. Pantoprazole 40 mg daily. 5. Acyclovir 800 mg daily. 6. Vitamin D 4000 international units once daily. 7. Zometa 4 mg intravenous monthly. 8. Allopurinol 100 mg daily. ALLERGIES 1. STREPTOKINASE, which caused hypotension. 2. CLINDAMYCIN, which caused hives. REVIEW OF SYSTEMS CONSTITUTIONAL: No appetite or weight change. No fever, chills or sweating. No recent infection. HEENT: Ears: No tinnitus or hearing problem. Nose: No nasal discharge or epistaxis. Throat: No sore throat or mouth ulcers. Eyes: No diplopia or visual changes. RESPIRATORY: No shortness of breath. No cough, expectoration or hemoptysis. CARDIOVASCULAR: No chest pain, orthopnea, or paroxysmal nocturnal dyspnea (PND). No edema. No palpitations. GASTROINTESTINAL: No nausea or vomiting. No diarrhea or constipation. No change in bowel movements. No heartburn or swallowing difficulties. No abdominal pain. No jaundice. No hematemesis, melena or rectal bleeding. GENITOURINARY: Recent urinary tract infection. MUSCULOSKELETAL: No pain in the muscles, joints or bones. NEUROLOGICAL: She has occasional headache. HEMATOLOGIC/LYMPHATIC: No bleeding or easy bruising. No weakness or fatigued. No enlarged lymph nodes. SKIN: No skin rash or lumps. PSYCHIATRIC: No anxiety or depression. PHYSICAL EXAMINATION GENERAL: Looks stable. Well-developed, well-nourished, and in no acute distress. VITAL SIGNS: Blood pressure 110/72, pulse 73 per minute, respirations 16 per minute, temperature 97.1, pulse oximetry 90% on room air. HEENT: Head: Atraumatic. No sinus tenderness to palpation. Eyes: No icterus or conjunctivitis. Mouth and throat: No oral thrush or mucositis. NECK: Supple. No cervical or supraclavicular lymphadenopathy. LUNGS: Clear to auscultation and percussion bilaterally. HEART: Regular rate and rhythm. No gallops, murmurs, clicks or rubs. ABDOMEN: Soft and lax. No tenderness. No hepatosplenomegaly. No masses. EXTREMITIES: No cyanosis, clubbing or edema. LYMPHATICS: No peripheral lymphadenopathy. NEUROLOGICAL: Conscious, alert and oriented times three. No focal motor or sensory deficits. PSYCHIATRIC: Mood and affect appear normal. SKIN: No skin rash, bruise or purpuric eruption. DIAGNOSTIC/LABORATORY STUDIES CBC shows a white count of 5.3, hemoglobin 15.9, hematocrit 48.3, platelets 193,000. Chem panel is totally normal except AST of 36. Beta-2 microglobulin is normal at 1.9. [place] free light chain is high at 7.56. Lambda free light chain is 0.86 and kappa to lambda free light chain ratio is 8.79. IgG level is 713. IgA is 146 and IgM is 30. Serum protein electrophoresis shows a monoclonal band of 0. 23 g/dL of IgG kappa monoclonal protein. ASSESSMENT 1. Multiple myeloma with plasma cell leukemia with 60% plasma cells in the bone marrow and 8% plasma cells in the peripheral blood. Skeletal bone survey was negative for lytic bone lesions. MRI of the cervical spine did reveal bone marrow signal throughout the lower cervical and thoracic spine, suggestive of underlying bone disease. Patient received VRd chemotherapy with Velcade, Revlimid, and dexamethasone between August 09, 2011, through November 04, 2011, followed by autologous stem cell transplant March 16, 2012. She received melphalan conditioning at that time. Bone marrow aspiration biopsy after the procedure revealed the presence of 4% to 5% kappa monoclonal cells and 0.9 g/dL IgG kappa monoclonal protein. Her M-spike marcelo so the patient started maintenance Velcade therapy August 08, 2014. She has been maintained on Velcade since then with stabilization of her monoclonal protein. Her current IgG kappa level is 0.23 g/dL, which is stable. Patient is asymptomatic currently and is doing very and her general condition is in good shape. I am planning to continue followup. I will see her again in a month with CBC, chem panel, LDH, uric acid and myeloma profile. 2. Esophagitis, on pantoprazole. 3. History of deep venous thrombosis, left lower extremity in 1999, status post inferior vena cava filter placement. 4. Hyperuricemia, under control with allopurinol 100 mg daily. PLAN 1. Velcade every other week. 2. CBC and chem panel to be checked every other week prior to Velcade therapy. 3. Patient to return in one month with CBC, chem panel, LDH, uric acid and myeloma profile. 4. Acyclovir 800 mg twice daily twice daily as a prophylaxis against shingles. 5. Allopurinol 100 mg daily. 6. Patient is to contact us for any new concerns or complaints. MTDD
[2018-05-05 09:07] VITALS: BP 130/85
[2018-05-05 09:18] LABS: PLATELET COUNT, AUTOMATED 203 K/uL (150-450)
[2018-05-06 08:50] VITALS: BP 114/84
[2018-05-19 08:57] VITALS: BP 115/80
[2018-05-19 09:21] LABS: PLATELET COUNT, AUTOMATED 230 K/uL (150-450)
[2018-05-20 08:49] VITALS: BP 114/70
--- NOTE | 2018-05-21 09:26 | NUR ---
Pt completed second HADS form. No Changes from initial form. A:0, D:0
[2018-05-23 09:25] VITALS: BP 122/67
--- NOTE | 2018-05-23 10:44 | [facility] ONCOLOGY NOTE ---
EVENT DATE: May 23, 2018 DIAGNOSES 1. Multiple myeloma. 2. Hypercholesterolemia. 3. History of deep vein thrombosis of the lower extremity. 4. Esophagitis and ulcer disease. CHIEF COMPLAINT Patient is here today for followup of her multiple myeloma, on maintenance Velcade therapy. ONCOLOGY HISTORY The patient is a 67-year-old female who was found during her evaluation in July 2011 by CBC and chem panel to have mild leukopenia of 2.4 with atypical lymphocytes in the peripheral blood. Her total protein at that time was high as well as liver enzymes. Total protein was 8.2, and albumin was 3.7. The patient had a serum protein electrophoresis which showed 0.31 g/dL monoclonal protein. She had a bone marrow aspiration biopsy done on July 19, 2011, which showed kappa monoclonal plasma cell dyscrasia. Peripheral blood was circulating plasma cells representing 8% of the nucleated cells. Beta-2 macroglobulin was high at 4. IgG was low at 374, IgA low at 14, and IgM low at 19. A 24-hour urine showed 1399 mg/dL free monoclonal kappa light change (Bence-Martinez protein) for 24 hours. FISH for multiple myeloma from the bone marrow biopsy came back abnormal for +1, -13, and translocation 14 and 16. Scheduled bone survey came back negative for lytic bone lesions, but MRI of the cervical and thoracic spine did reveal abnormal signal throughout the lower cervical and thoracic spine suggestive of underlying myeloproliferative bone marrow disorder. The patient received chemotherapy with VRd regimen with Velcade, Revlimid, and dexamethasone for four courses between August 09, 2011, through November 17, 2011. This was followed by autologous stem cell transplant after pre-palliative regimen with Melphalan 100 mg/m2 given on December 10, 2011, through December 11, 2011. She received stem cell infusion on December 13, 2011. The patient started maintenance Velcade therapy on August 08, 2014. HISTORY OF PRESENT ILLNESS The patient is here today for followup of her multiple myeloma, on Velcade maintenance therapy. She is doing fine currently except having radicular pain along the right rib cage. PAST MEDICAL HISTORY 1. DVT of the left leg in 1999. 2. Hypercholesterolemia. 3. Esophagitis with peptic ulcer disease. PAST SURGICAL HISTORY 1. Surgery for broken right ankle in 2002. 2. Inferior vena cava filter placed in 1999. 3. Tubal ligation. SOCIAL HISTORY The patient is . She has a son and daughter. 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 Denies any abuse of tobacco, alcohol, or drugs. She has about one drink per year. FAMILY HISTORY Mother had breast cancer at the age of 63. Father had liver cancer at the age of 73. Aunt with breast cancer, does not know exactly the age. Grandmother had ovarian cancer at the age of 63. CURRENT MEDICATIONS 1. Multivitamins once daily. 2. Calcium 200 mg once daily. 3. Aspirin 81 mg daily. 4. Pantoprazole 40 mg daily. 5. Acyclovir 800 mg daily. 6. Vitamin D 4000 international units once daily. 7. Zometa 4 mg intravenous monthly. 8. Allopurinol 100 mg daily. ALLERGIES 1. STREPTOKINASE, which caused hypotension. 2. CLINDAMYCIN, which caused hives. REVIEW OF SYSTEMS CONSTITUTIONAL: No appetite or weight change. No fever, chills or sweating. No recent infection. HEENT: Ears: No tinnitus or hearing problem. Nose: No nasal discharge or epistaxis. Throat: No sore throat or mouth ulcers. Eyes: No diplopia or visual changes. RESPIRATORY: No shortness of breath. No cough, expectoration or hemoptysis. CARDIOVASCULAR: No chest pain, orthopnea, or paroxysmal nocturnal dyspnea (PND). No edema. No palpitations. GASTROINTESTINAL: No nausea or vomiting. No diarrhea or constipation. No change in bowel movements. No heartburn or swallowing difficulties. No abdominal pain. No jaundice. No hematemesis, melena or rectal bleeding. GENITOURINARY: Recent urinary tract infection. MUSCULOSKELETAL: Patient has radicular pain along the right rib cage. NEUROLOGICAL: She has occasional headache. HEMATOLOGIC/LYMPHATIC: No bleeding or easy bruising. No weakness or fatigued. No enlarged lymph nodes. SKIN: No skin rash or lumps. PSYCHIATRIC: No anxiety or depression. PHYSICAL EXAMINATION GENERAL: Looks stable. Well-developed, well-nourished, and in no acute distress. VITAL SIGNS: Blood pressure 122/67, pulse 80 per minute, respirations 16 per minute, temperature 96.8, pulse oximetry 90% on room air. HEENT: Head: Atraumatic. No sinus tenderness to palpation. Eyes: No icterus or conjunctivitis. Mouth and throat: No oral thrush or mucositis. NECK: Supple. No cervical or supraclavicular lymphadenopathy. LUNGS: Clear to auscultation and percussion bilaterally. HEART: Regular rate and rhythm. No gallops, murmurs, clicks or rubs. ABDOMEN: Soft and lax. No tenderness. No hepatosplenomegaly. No masses. EXTREMITIES: No cyanosis, clubbing or edema. LYMPHATICS: No peripheral lymphadenopathy. NEUROLOGICAL: Conscious, alert and oriented times three. No focal motor or sensory deficits. PSYCHIATRIC: Mood and affect appear normal. SKIN: No skin rash, bruise or purpuric eruption. DIAGNOSTIC/LABORATORY STUDIES CBC shows white count 4.9, hemoglobin 15.7, hematocrit 45.8, platelets 230,000. Chem panel is totally normal except BUN 19. Beta-2 microglobulin is normal at 2.1. [place] free light chain is mildly elevated at 8.21. Lambda free light chain is normal at 0.94 and kappa to lambda free light chain ratio is 8.73, which is elevated. IgG level is 621, which is mildly low. IgA is normal at 134 and IgM is mildly low at 29. Serum protein electrophoresis shows a monoclonal band of IgG kappa of 0.23 g/dL, which is stable. ASSESSMENT 1. Multiple myeloma with plasma cell leukemia with 60% plasma cells in the bone marrow and 8% plasma cells in the peripheral blood. Skeletal bone survey was negative for lytic bone lesions. MRI of the cervical spine did reveal bone marrow signal throughout the lower cervical and thoracic spine, suggestive of underlying bone disease. Patient received VRd chemotherapy with Velcade, Revlimid, and dexamethasone between August 09, 2011, through November 04, 2011, followed by autologous stem cell transplant March 16, 2012. She received melphalan conditioning at that time. Bone marrow aspiration biopsy after the procedure revealed the presence of 4% to 5% kappa monoclonal cells and 0.9 g/dL IgG kappa monoclonal protein. Her M-spike marcelo so the patient started maintenance Velcade therapy August 08, 2014. She is still on maintenance Velcade since then with stabilization of her monoclonal protein. Her current IgG kappa level is 0.23 g/dL, which is stable. Patient is asymptomatic and generally is doing very well but she is complaining of radicular pain along the right rib cage currently. I am planning to continue followup for her myeloma. I will see her in a month with CBC, chem panel, LDH, uric acid and myeloma profile. 2. Radicular pain along the right rib cage. I am planning to get x-ray of the cervical lumbar spine. Because of her history of myeloma, there is a chance of vertebral collapse. MRI will be considered if indicated. 3. Esophagitis, on pantoprazole. 4. History of deep venous thrombosis, left lower extremity in 1999, status post inferior vena cava filter placement. 5. Hyperuricemia, under control with allopurinol 100 mg daily. PLAN 1. Velcade every other week. 2. CBC and chem panel to be checked prior to Velcade therapy. 3. Patient to return in one month with CBC, chem panel, LDH, uric acid and myeloma profile. 4. Acyclovir 800 mg twice daily for prophylaxis against shingles. 5. Allopurinol 100 mg daily. 6. X-ray of thoracolumbar spine for evaluation of radicular pain along the right rib cage. 7. Patient is to contact us for any new concerns or complaints. MTDD
--- NOTE | 2018-05-23 11:11 | RADIOLOGY IMAGING REPORT ---
FACILITY: PATIENT NAME: Rosa Quiroga : 1950 MR: [id number] V: [id number] EXAM DATE: ORDERING PHYSICIAN: KAREEM JANSEN TECHNOLOGIST: Location: [facility] [place] Patient: Rosa Quiroga : 1950 Visit/Account:[id number] Date of Sevice: 05/23/2018 XR THORACIC SPINE 3 V HISTORY: Back pain COMPARISON: CT examination of the chest from February 18, 2018 FINDINGS: There is subtle right curvature of the midthoracic spine measuring approximately 4 degrees. Osseous alignment anatomic without fracture or destructive osseous process. Mild multilevel disc narrowing w ith slight endplate spurring is seen throughout the mid and lower thoracic spine without acute bony f inding. Findings are unchanged as compared to previous CT examination. The visualized portions of the ribs are without acute finding. IMPRESSION: Stable, mild multilevel spondylosis without acute bony finding of the thoracic spine Report Dictated By: Champ Cuevas MD at 05/23/2018 11:05 AM Report E-Signed By: Champ Cuevas MD at 05/23/2018 11:07 AM WSN:[email or web address]
--- NOTE | 2018-05-23 11:35 | RADIOLOGY IMAGING REPORT ---
FACILITY: [facility] - [place] PATIENT NAME: Rosa Quiroga : 1950 MR: [id number] V: [id number] EXAM DATE: ORDERING PHYSICIAN: KAREEM JANSEN TECHNOLOGIST: Location: [facility] Patient: Rosa Quiroga : 1950 Visit/Account:[id number] Date of Sevice: 05/23/2018 L-SPINE 2 OR 3 VIEW Indication: Back pain Comparison: None. Findings: Vertebral bodies and posterior elements are intact. Disc spaces are normal. There is face t arthropathy L4-5 and L5-S1. Mild degenerative changes in the lower thoracic spine are seen. IMPRESSION: 1. Facet arthropathy L4-5 and L5-S1. 2. Mild degenerative changes lower thoracic spine. Report Dictated By: Alejandro Campbell at 05/23/2018 11:30 AM Report E-Signed By: Alejandro Campbell at 05/23/2018 11:31 AM WSN:[facility]-LESTER
[~2018-06-02] VITALS: Ht 160 cm; Wt 78.6 kg
[~2018-06-02 09:07] MED LIST changes: +ATOR10TA24 PO; -INFLUENZA VIRUS VAC 0.5ML SYR IM ONLY ONE; -SIMV5TAB60 PO; +SIMV5TAB69 PO
[2018-06-02 09:51] LABS: PLATELET COUNT, AUTOMATED 223 K/uL (150-450)
[2018-06-02 10:00] VITALS: BP 125/69
[2018-06-03] MEDS ORDERED: BORTEZOMIB 3.5 MG INJS SC ONE (09:30)
== END 2018-06-08 ==
LOC: SPU 09:07
PROVIDERS: ATTEND Internal Medicine Hematology
DX: C90.00 Multiple myeloma not having achieved remission (principal); Z23 Encounter for immunization; K20.9 Esophagitis, unspecified; Z86.718 Personal history of other venous thrombosis and embolism; E79.0 Hyperuricemia without signs of inflammatory arthritis and tophaceous disease; Z79.899 Other long term (current) drug therapy; Z79.82 Long term (current) use of aspirin; E78.00 Pure hypercholesterolemia, unspecified; R30.0 Dysuria; Z95.828 Presence of other vascular implants and grafts
CPT/HCPCS: 36415; 72072; 72100; 81001; 82232; 83615; 83883; 84550; 85025; 85027; 86334; 96401; G0463; J9041; 82040; 82247; 82310; 82374; 82435; 82565; 82947; 84075; 84132; 84155; 84295; 84450; 84460; 84520; 99212

== ENCOUNTER 2018-09-05 08:50 | Outpatient (RCR) | payer MEDICARE, OTHER ==
[2018-06-16 09:09] VITALS: BP 138/92
[2018-06-16 09:25] LABS: PLATELET COUNT, AUTOMATED 213 K/uL (150-450)
[2018-06-17 08:58] VITALS: BP 119/75
[2018-06-20 10:29] VITALS: BP 117/71
--- NOTE | 2018-06-20 12:01 | EL-TARABILY ONCOLOGY NOTE ---
EVENT DATE: June 20, 2018 DIAGNOSES 1. Multiple myeloma. 2. Hypercholesterolemia. 3. History of deep vein thrombosis of the lower extremity. 4. Esophagitis and ulcer disease. CHIEF COMPLAINT Patient is here today for followup of her multiple myeloma, on maintenance Velcade therapy. ONCOLOGY HISTORY The patient is a 67-year-old female who was found during her evaluation in July 2011 by CBC and chem panel to have mild leukopenia of 2.4 with atypical lymphocytes in the peripheral blood. Her total protein at that time was high as well as liver enzymes. Total protein was 8.2, and albumin was 3.7. The patient had a serum protein electrophoresis which showed 0.31 g/dL monoclonal protein. She had a bone marrow aspiration biopsy done on July 19, 2011, which showed kappa monoclonal plasma cell dyscrasia. Peripheral blood was circulating plasma cells representing 8% of the nucleated cells. Beta-2 macroglobulin was high at 4. IgG was low at 374, IgA low at 14, and IgM low at 19. A 24-hour urine showed 1399 mg/dL free monoclonal kappa light change (Bence-Martinez protein) for 24 hours. FISH for multiple myeloma from the bone marrow biopsy came back abnormal for +1, -13, and translocation 14 and 16. Scheduled bone survey came back negative for lytic bone lesions, but MRI of the cervical and thoracic spine did reveal abnormal signal throughout the lower cervical and thoracic spine suggestive of underlying myeloproliferative bone marrow disorder. The patient received chemotherapy with VRd regimen with Velcade, Revlimid, and dexamethasone for four courses between August 09, 2011, through November 17, 2011. This was followed by autologous stem cell transplant after pre-palliative regimen with Melphalan 100 mg/m2 given on December 10, 2011, through December 11, 2011. She received stem cell infusion on December 13, 2011. The patient started maintenance Velcade therapy on August 08, 2014. HISTORY OF PRESENT ILLNESS The patient is here today for followup of her multiple myeloma, on Velcade maintenance therapy. She is doing fine currently. Her back pain is getting better and her x-ray of the back did show only degenerative changes. PAST MEDICAL HISTORY 1. DVT of the left leg in 1999. 2. Hypercholesterolemia. 3. Esophagitis with peptic ulcer disease. PAST SURGICAL HISTORY 1. Surgery for broken right ankle in 2002. 2. Inferior vena cava filter placed in 1999. 3. Tubal ligation. SOCIAL HISTORY The patient is . She has a son and daughter. 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 Denies any abuse of tobacco, alcohol, or drugs. She has about one drink per year. FAMILY HISTORY Mother had breast cancer at the age of 63. Father had liver cancer at the age of 73. Aunt with breast cancer, does not know exactly the age. Grandmother had ovarian cancer at the age of 63. CURRENT MEDICATIONS 1. Multivitamins once daily. 2. Calcium 200 mg once daily. 3. Aspirin 81 mg daily. 4. Pantoprazole 40 mg daily. 5. Acyclovir 800 mg daily. 6. Vitamin D 4000 international units once daily. 7. Zometa 4 mg intravenous monthly. 8. Allopurinol 100 mg daily. ALLERGIES 1. STREPTOKINASE, which caused hypotension. 2. CLINDAMYCIN, which caused hives. REVIEW OF SYSTEMS CONSTITUTIONAL: No appetite or weight change. No fever, chills or sweating. No recent infection. HEENT: Ears: No tinnitus or hearing problem. Nose: No nasal discharge or epistaxis. Throat: No sore throat or mouth ulcers. Eyes: No diplopia or visual changes. RESPIRATORY: No shortness of breath. No cough, expectoration or hemoptysis. CARDIOVASCULAR: No chest pain, orthopnea, or paroxysmal nocturnal dyspnea (PND). No edema. No palpitations. GASTROINTESTINAL: No nausea or vomiting. No diarrhea or constipation. No change in bowel movements. No heartburn or swallowing difficulties. No abdominal pain. No jaundice. No hematemesis, melena or rectal bleeding. GENITOURINARY: Recent urinary tract infection. MUSCULOSKELETAL: She has back pain, which is getting better. NEUROLOGICAL: She has occasional headache. HEMATOLOGIC/LYMPHATIC: No bleeding or easy bruising. No weakness or fatigued. No enlarged lymph nodes. SKIN: No skin rash or lumps. PSYCHIATRIC: No anxiety or depression. PHYSICAL EXAMINATION GENERAL: Looks stable. Well-developed, well-nourished, and in no acute distress. VITAL SIGNS: Blood pressure 117/75, pulse 75 per minute, respirations 16 per minute, temperature 97.1, pulse oximetry 90% on room air. HEENT: Head: Atraumatic. No sinus tenderness to palpation. Eyes: No icterus or conjunctivitis. Mouth and throat: No oral thrush or mucositis. NECK: Supple. No cervical or supraclavicular lymphadenopathy. LUNGS: Clear to auscultation and percussion bilaterally. HEART: Regular rate and rhythm. No gallops, murmurs, clicks or rubs. ABDOMEN: Soft and lax. No tenderness. No hepatosplenomegaly. No masses. EXTREMITIES: No cyanosis, clubbing or edema. LYMPHATICS: No peripheral lymphadenopathy. NEUROLOGICAL: Conscious, alert and oriented times three. No focal motor or sensory deficits. PSYCHIATRIC: Mood and affect appear normal. SKIN: No skin rash, bruise or purpuric eruption. DIAGNOSTIC/LABORATORY STUDIES CBC shows white count 5,000, hemoglobin 15.1, hematocrit 44.2, platelets 215,000. Chem panel is normal except blood sugar 72 and BUN 20. Thoracolumbar x-ray done on May 23, 2018, did reveal multi-level spondylosis with facet arthropathy at lumbar 4-5 and lumbar 5-1. ASSESSMENT 1. Multiple myeloma with plasma cell leukemia with 60% plasma cells in the bone marrow and 8% plasma cells in the peripheral blood. Skeletal bone survey was negative for lytic bone lesions. MRI of the cervical spine did reveal bone marrow signal throughout the lower cervical and thoracic spine, suggestive of underlying bone disease. Patient received VRd chemotherapy with Velcade, Revlimid, and dexamethasone between August 09, 2011, through November 04, 2011, followed by autologous stem cell transplant March 16, 2012. She received melphalan conditioning at that time. Bone marrow aspiration biopsy after the procedure revealed the presence of 4% to 5% kappa monoclonal cells and 0.9 g/dL IgG kappa monoclonal protein. Her M-spike marcelo so the patient started maintenance Velcade therapy August 08, 2014. She is still on maintenance therapy with Velcade since then with stabilization of her monoclonal protein. Her current IgG kappa level is 0.25 g/dL. Patient is asymptomatic currently and her back pain is much better currently. X-ray of the thoracolumbar spine did not show lytic lesions but multi-level spondylosis and facet arthropathy at lumbar 4-5 and lumbar 5-1. I am planning to continue followup. I will see her again in a month with CBC, chem panel, LDH, uric acid and myeloma profile. 2. Esophagitis, on pantoprazole. 3. History of deep venous thrombosis, left lower extremity in 1999, status post inferior vena cava filter placement. 4. Hyperuricemia, under control with allopurinol 100 mg daily. PLAN 1. Velcade every other week. 2. CBC and chem panel to be checked prior to Velcade therapy. 3. Patient to return in one month with CBC, chem panel, LDH, uric acid and myeloma profile. 4. Continue acyclovir 800 mg twice daily. 5. Allopurinol 100 mg daily. 6. Patient is to contact us for any new concerns or complaints. MTDD
[2018-06-30 08:58] VITALS: BP 117/74
[2018-06-30 09:18] LABS: PLATELET COUNT, AUTOMATED 194 K/uL (150-450)
[2018-07-01 09:02] VITALS: BP 117/62
[2018-07-14 09:01] VITALS: BP 119/81
[2018-07-15 09:02] VITALS: BP 107/70
[2018-07-28 09:38] LABS: PLATELET COUNT, AUTOMATED 206 K/uL (150-450)
[2018-07-29 08:55] VITALS: BP 117/73
[2018-08-11 08:59] VITALS: BP 122/71
[2018-08-11 09:07] LABS: PLATELET COUNT, AUTOMATED 232 K/uL (150-450)
[2018-08-12 08:50] VITALS: BP 106/68
[2018-08-26 09:06] VITALS: BP 122/73
[2018-08-26 09:11] LABS: PLATELET COUNT, AUTOMATED 219 K/uL (150-450)
[2018-08-29 09:16] VITALS: BP 104/66
--- NOTE | 2018-08-29 10:26 | EL-TARABILY ONCOLOGY NOTE ---
EVENT DATE: August 29, 2018 DIAGNOSES 1. Multiple myeloma. 2. Hypercholesterolemia. 3. History of deep vein thrombosis of the lower extremity. 4. Esophagitis and ulcer disease. CHIEF COMPLAINT Patient is here today for followup of her multiple myeloma, on maintenance Velcade therapy. ONCOLOGY HISTORY The patient is a 68-year-old female who was found during her evaluation in July 2011 by CBC and chem panel to have mild leukopenia of 2.4 with atypical lymphocytes in the peripheral blood. Her total protein at that time was high as well as liver enzymes. Total protein was 8.2, and albumin was 3.7. The patient had a serum protein electrophoresis which showed 0.31 g/dL monoclonal protein. She had a bone marrow aspiration biopsy done on July 19, 2011, which showed kappa monoclonal plasma cell dyscrasia. Peripheral blood was circulating plasma cells representing 8% of the nucleated cells. Beta-2 macroglobulin was high at 4. IgG was low at 374, IgA low at 14, and IgM low at 19. A 24-hour urine showed 1399 mg/dL free monoclonal kappa light change (Bence-Martinez protein) for 24 hours. FISH for multiple myeloma from the bone marrow biopsy came back abnormal for +1, -13, and translocation 14 and 16. Scheduled bone survey came back negative for lytic bone lesions, but MRI of the cervical and thoracic spine did reveal abnormal signal throughout the lower cervical and thoracic spine suggestive of underlying myeloproliferative bone marrow disorder. The patient received chemotherapy with VRd regimen with Velcade, Revlimid, and dexamethasone for four courses between August 09, 2011, through November 17, 2011. This was followed by autologous stem cell transplant after pre-palliative regimen with Melphalan 100 mg/m2 given on December 10, 2011, through December 11, 2011. She received stem cell infusion on December 13, 2011. The patient started maintenance Velcade therapy on August 08, 2014. Velcade was stopped on August 29, 2018 and patient started Revlimid August 31, 2018. HISTORY OF PRESENT ILLNESS The patient is here today for followup of her multiple myeloma, on Velcade maintenance therapy. She is doing fine currently and totally asymptomatic. Since starting Velcade maintenance, she does not have any improvement of her protein level but its level was stabilized. For this reason, we will try to put her on maintenance Revlimid, hoping for clearance of her protein level. PAST MEDICAL HISTORY 1. DVT of the left leg in 1999. 2. Hypercholesterolemia. 3. Esophagitis with peptic ulcer disease. PAST SURGICAL HISTORY 1. Surgery for broken right ankle in 2002. 2. Inferior vena cava filter placed in 1999. 3. Tubal ligation. SOCIAL HISTORY The patient is . She has a son and daughter. 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 Denies any abuse of tobacco, alcohol, or drugs. She has about one drink per year. FAMILY HISTORY Mother had breast cancer at the age of 63. Father had liver cancer at the age of 73. Aunt with breast cancer, does not know exactly the age. Grandmother had ovarian cancer at the age of 63. CURRENT MEDICATIONS 1. Multivitamins once daily. 2. Calcium 200 mg once daily. 3. Aspirin 81 mg daily. 4. Pantoprazole 40 mg daily. 5. Acyclovir 800 mg daily. 6. Vitamin D 4000 international units once daily. 7. Zometa 4 mg intravenous monthly. 8. Allopurinol 100 mg daily. ALLERGIES 1. STREPTOKINASE, which caused hypotension. 2. CLINDAMYCIN, which caused hives. REVIEW OF SYSTEMS CONSTITUTIONAL: No appetite or weight change. No fever, chills or sweating. No recent infection. HEENT: Ears: No tinnitus or hearing problem. Nose: No nasal discharge or epistaxis. Throat: No sore throat or mouth ulcers. Eyes: No diplopia or visual changes. RESPIRATORY: No shortness of breath. No cough, expectoration or hemoptysis. CARDIOVASCULAR: No chest pain, orthopnea, or paroxysmal nocturnal dyspnea (PND). No edema. No palpitations. GASTROINTESTINAL: No nausea or vomiting. No diarrhea or constipation. No change in bowel movements. No heartburn or swallowing difficulties. No abdominal pain. No jaundice. No hematemesis, melena or rectal bleeding. GENITOURINARY: Recent urinary tract infection. MUSCULOSKELETAL: She has back pain, which is getting better. NEUROLOGICAL: She has occasional headache. HEMATOLOGIC/LYMPHATIC: No bleeding or easy bruising. No weakness or fatigued. No enlarged lymph nodes. SKIN: No skin rash or lumps. PSYCHIATRIC: No anxiety or depression. PHYSICAL EXAMINATION GENERAL: Looks stable. Well-developed, well-nourished, and in no acute distress. VITAL SIGNS: Blood pressure 104/66, pulse 107 per minute, respirations 16 per minute, temperature 97.3, pulse oximetry 90% on room air. HEENT: Head: Atraumatic. No sinus tenderness to palpation. Eyes: No icterus or conjunctivitis. Mouth and throat: No oral thrush or mucositis. NECK: Supple. No cervical or supraclavicular lymphadenopathy. LUNGS: Clear to auscultation and percussion bilaterally. HEART: Regular rate and rhythm. No gallops, murmurs, clicks or rubs. ABDOMEN: Soft and lax. No tenderness. No hepatosplenomegaly. No masses. EXTREMITIES: No cyanosis, clubbing or edema. LYMPHATICS: No peripheral lymphadenopathy. NEUROLOGICAL: Conscious, alert and oriented times three. No focal motor or sensory deficits. PSYCHIATRIC: Mood and affect appear normal. SKIN: No skin rash, bruise or purpuric eruption. DIAGNOSTIC/LABORATORY STUDIES CBC shows white count 4.7, hemoglobin 15.7, hematocrit 45.5, platelets 219,000. Chem panel totally normal. Katie free light chain is 8.19, up from 8.1. Lambda free light chain is 0.75, which is normal. Katie to lambda ratio if 10.9, which is down from 13.06. IgM is low at 27. IgG is low at 633 and IgA is normal at 139. Serum protein electrophoresis shows monoclonal protein of IgG kappa at 0.23 g/dL, which is stable. ASSESSMENT 1. Multiple myeloma with plasma cell leukemia with 60% plasma cells in the bone marrow and 8% plasma cells in the peripheral blood. Skeletal bone survey was negative for lytic bone lesions. MRI of the cervical spine did reveal bone marrow signal throughout the lower cervical and thoracic spine, suggestive of underlying bone disease. Patient received VRd chemotherapy with Velcade, Revlimid, and dexamethasone between August 09, 2011, through November 04, 2011, followed by autologous stem cell transplant March 16, 2012. She received melphalan conditioning at that time. Bone marrow aspiration biopsy after the procedure revealed the presence of 4% to 5% kappa monoclonal cells and 0.9 g/dL IgG kappa monoclonal protein. Her M-spike marcelo so the patient started maintenance Velcade therapy August 08, 2014. She is now nearly four years and her protein is nearly the same, which is stabilized, and her current level IgG kappa is 0.23 g/dL. I talked to the patient today that I have better luck with Revlimid maintenance than Velcade maintenance in clearing the monoclonal protein and the patient is enthusiastic about switching to Revlimid. I am planning to stop Velcade and start Revlimid 10 mg daily for three weeks out of four week cycles. I will see her again in a month after starting Revlimid with CBC, chem panel, LDH, uric acid and myeloma profile. 2. Esophagitis, on pantoprazole. 3. History of deep venous thrombosis, left lower extremity in 1999, status post inferior vena cava filter placement. 4. Hyperuricemia, under control with allopurinol 100 mg daily. PLAN 1. Stop Velcade. 2. Start Revlimid 10 mg orally daily for three weeks out of four week cycle. 3. Aspirin one pill daily as a prophylaxis against DVT given that the patient has a history of DVT in the past. 4. Patient to return in one month after starting Revlimid with CBC, chem panel, LDH, uric acid and myeloma profile. 5. Continue Acyclovir 800 mg twice daily. 6. Allopurinol 100 mg daily. 7. Patient is to contact us for any new concerns or complaints. MTDD
[~2018-09-05] VITALS: Ht 160 cm; Wt 80.0 kg
[~2018-09-05 08:50] MED LIST changes: +LENA10CA4 PO
[2018-09-05 08:55] VITALS: BP 121/82
--- NOTE | 2018-09-05 12:30 | ONCOLOGY CHEMO TEACHING ---
EVENT DATE: September 05, 2018 DIAGNOSIS Multiple myeloma. The patient and her are seen today for chemotherapy teaching. A total of 60 minutes was spent with them, 100% of which was [id number] counseling. HISTORY OF PRESENT ILLNESS The patient is a 68-year old female who is seen today to discuss upcoming treatment with Revlimid. She has been tolerating the Velcade without issue except for some mild soreness in her arms. She has very minimal transient peripheral neuropathy, mostly in her left hand, but this resolves very quickly. Overall, she feels well. She has had no issues with infection and feels ready to begin the Revlimid. ONCOLOGY HISTORY Patient is a 68-year old female who was noted to have mild leukopenia with atypical lymphocytes on evaluation in July 2011. Total protein and liver enzymes were high. Serum protein electrophoresis showed a 0.31 g/dL monoclonal protein. Bone marrow biopsy showed kappa monoclonal plasma cell dyscrasia. 24- hour urine showed 1399 mg/dL free monoclonal kappa light chains (Bence Martinez protein). FISH for multiple myeloma from the bone marrow came back abnormal for +1, -13 and translocation 14 and 16. Bone survey was negative for lytic lesions but MRI of the cervical and thoracic spine showed abnormal signal throughout the lower cervical throughout, suggestive of underlying myeloproliferative bone marrow disorder. Treated with VRd regimen for four courses from August 09, 2011, through November 17, 2011. Underwent autologous stem cell transplant on December 13, 2011. Treated with maintenance Velcade therapy from July 2014 through July 2018. Began Revlimid on September 05, 2018. PAST MEDICAL HISTORY 1. Multiple myeloma, 2011, status post autologous transplant December 13, 2011. 2. DVT of the left lower extremity, 1999. 3. Hyperlipidemia. 4. Esophagitis with peptic ulcer disease. PAST SURGICAL HISTORY 1. Surgery for broken right ankle, 2002. 2. Inferior vena cava placement, 1999. 3. Tubal ligation. FAMILY HISTORY Mother had breast cancer at age 63. Father had liver cancer at age 73. Aunt with breast cancer at an unknown age. Grandmother had ovarian cancer at age 63. SOCIAL HISTORY The patient is . They have two children. 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 She has about one drink per year. She denies any use of alcohol or drugs. CURRENT MEDICATIONS 1. Multivitamin. 2. Calcium. 3. Aspirin 81 mg daily. 4. Pantoprazole 40 mg daily. 5. Acyclovir 800 mg b.i.d. 6. Vitamin D3 4000 international units daily. 7. Allopurinol 100 mg daily. ALLERGIES 1. Streptokinase, which causes hypotension. 2. Clindamycin, which causes hives. DISCUSSION 1. A total of 60 minutes was spent in counseling today, 100% of which was face to face. At today's chemotherapy teaching session we discussed her diagnosis as well as the planned chemotherapy regimen and toxicities associated with Revlimid. Handouts of this drug were provided and reviewed in detail. 2. Side effects and toxicities of chemotherapy agents included, but were not limited to: A. Bone marrow suppression, specifically neutropenia. She is instructed to contact our offices with any signs of infection. CBC will be monitored routinely. We discussed common sense approaches including routine hand washing and avoidance of crowds/sick people if neutropenic. We also reviewed anemia and thrombocytopenia as possible side effects and reviewed symptoms and management. B. GI side effects. Discussed the possibility of either diarrhea or constipation. Her bowels are now normal. If she were to have diarrhea, recommended Imodium. If she were to have constipation, recommend MiraLAX routinely. Further interventions will be made on this side effect. C. side effects. Discussed the importance of adequate hydration (minimum 8 cups of fluid per day) and emptying the bladder on a regular basis. IV hydration can be scheduled as needed. D. Skin toxicity. Reviewed that Revlimid can cause a possible rash. She will be monitored closely. Recommended routine moisturizing as well as sun protection. E. Fatigue. Discussed that this is one of the most common complaints of patients undergoing chemotherapy. I have encouraged her to remain as active as possible, taking frequent rests as needed. F. Fluid retention. Reviewed that this may happen in her lower extremities. She will monitor closely and notify us that this occurs. G. Clotting disorder. Reviewed that lenalidomide can increase the risks of blood clot, stroke or heart attack. As she has had a DVT in the past, she will discontinue aspirin 81 mg and begin aspirin 325 mg. We also discussed the symptoms of a DVT and she will notify us if she has any issues. 3. I have instructed the patient to call our office if she is prescribed any new medications. It is recommended that multiple supplements or herbal medications may not be taken as these may interfere with the action of the chemotherapy. 4. Discussed dietary issues associated with chemotherapy including anorexia and changes in taste. Referral to mri special procedures technologist can be made if needed. 5. Office contact information ([phone]) is given. I have encouraged the patient to call with any issues regarding treatment. 6. The patient feels ready to begin treatment. 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 She will be seen in two weeks with a CBC and CMP to assess for toxicity. She will see Dr. Howard in four weeks and CBC, CMP, LDH, uric acid and myeloma panel will be done before that visit. MTDD
== END 2018-09-11 ==
LOC: ONC 08:50
PROVIDERS: ATTEND Internal Medicine Hematology
DX: C90.00 Multiple myeloma not having achieved remission (principal); E78.00 Pure hypercholesterolemia, unspecified; Z86.718 Personal history of other venous thrombosis and embolism; K20.9 Esophagitis, unspecified; Z79.899 Other long term (current) drug therapy; E79.0 Hyperuricemia without signs of inflammatory arthritis and tophaceous disease
CPT/HCPCS: 36415; 82232; 83615; 83883; 84550; 85025; 85027; 86334; 96401; G0463; J9041; 82040; 82247; 82310; 82374; 82435; 82565; 82947; 84075; 84132; 84155; 84295; 84450; 84460; 84520; 99212

== ENCOUNTER → 2018-09-09 | Outpatient (CLI) | payer MEDICARE, OTHER ==
[~2018-09-09] MED LIST changes: -BORTEZOMIB 3.5 MG INJS SC ONE
--- NOTE | 2018-09-10 10:50 | RADIOLOGY IMAGING REPORT ---
[place]AC[place] [facility] [place] NAME: ENMA BROWN : [id number] MR: [id number] V: [id number] EXAM DATE: [id number] ORDERING PHYSICIAN: JALYN STERLING TECHNOLOGIST: Azalea Dior PROCEDURE: BILATERAL DIGITAL SCREENING MAMMOGRAM WITH CAD ASSISTED INTERPRETATION & 3D TOMOSYNTHESIS REASON FOR STUDY: Screening FAMILY HISTORY OF BREAST CANCER: Mother, Maternal Aunt, Maternal cousin & history of ovarian cancer Paternal Grandmother BREAST PROCEDURES/TREATMENTS: Benign aspirations of both breasts COMPARISON: 08/06/17, 07/16/16, 07/14/15, 07/09/14, , 06/12/12 VIEWS OBTAINED: Bilateral 2D & 3D full field CC & MLO projections BREAST DENSITY: The breasts are heterogeneously dense which can obscure small masses. MAMMOGRAM FINDINGS: The parenchymal pattern has remained stable allowing for difference in mammographic technique & patient positioning. IMPRESSION: BIRADS 1: Negative. DIAGNOSTIC CATEGORY 1--NEGATIVE. RECOMMENDATIONS: ROUTINE MAMMOGRAM AND CLINICAL EVALUATION. Dictated by: Kimberley Sauceda M.D. on 09/09/2018 at 15:25 Transcribed by: KORY on 09/10/2018 at 7:02 Approved by: Kimberley Sauceda M.D. on 09/10/2018 at 10:47 [facility]
== END ==
LOC: MAMO 00:09
PROVIDERS: ATTEND Family Medicine
DX: Z12.31 Encounter for screening mammogram for malignant neoplasm of breast (principal)
CPT/HCPCS: 77063; 77067